=== PATIENT | male | born 1970 | race Caucasian/White ===

== ENCOUNTER 2016-11-02 11:39 | Inpatient (IN) | payer OTHER ==
[~2016-11-02] VITALS: Ht 182.9 cm; Wt 109.7 kg
[2016-11-02] VITALS (9 sets, daily range): BP systolic 129–163; BP diastolic 84–91; PULSE 63–118; RESP 18–31; TEMP 97.8–99.9; O2SAT 96–99
[2016-11-02] MEDS ORDERED: SODIUM CHLOR 0.9% 1000 ML INJ 1,000 ML IV SCH (11:48)
[2016-11-02] MEDS ORDERED: TETANUS/DIPHTHERIA TOXOID ADULT 0.5 ML VIAL IM ONE (12:00)
[2016-11-02] MEDS ORDERED: ONDANSETRON HCL 4 MG/2 ML VIAL IVP ONE (12:00)
[2016-11-02] MEDS ORDERED: SODIUM CHLORIDE 0.9% FLUSH 10 ML FLUSH IVF PRN ×2 (12:00→16:15)
[2016-11-02] MEDS ORDERED: MORPHINE SULFATE 4 MG/ML INJ IV ONE (12:00)
[2016-11-02 12:25] LABS: AUTOMATED NEUTROPHIL # 9.9 TH/MM3 (1.8-7.7); BASOPHIL # 0.1 TH/MM3 (0-0.2); BASOPHIL % 0.5 % (0.0-2.0); EOSINOPHIL # 0.1 TH/MM3 (0-0.4); EOSINOPHIL % 0.8 % (0.0-4.0); HEMATOCRIT 43.2 % (39.0-51.0); HEMO FLAGS DIFF FINAL; LYMPHOCYTE # 3.1 TH/MM3 (1.0-4.8); MEAN CELL VOLUME 90.5 FL (80.0-100.0); MEAN CORPUSCULAR HEMOGLOBIN 30.6 PG (27.0-34.0); MEAN CORPUSCULAR HGB CONC 33.8 % (32.0-36.0); MONO % 6.3 % (0.0-8.0); NEUT % 70.4 % (16.0-70.0); PLATELET COUNT 207 TH/MM3 (150-450); RED BLOOD COUNT 4.77 MIL/MM3 (4.50-5.90); RED CELL DISTRIBUTION WIDTH 12.3 % (11.6-17.2); WHITE BLOOD COUNT 14.1 TH/MM3 (4.0-11.0)
[2016-11-02 12:33] LABS: BICARBONATE 27.8 MEQ/L (21.0-32.0); POTASSIUM 3.5 MEQ/L (3.5-5.1)
[2016-11-02 12:36] LABS: APTT (PATIENT) 24.7 SEC (24.3-30.1); PROTHROMBIN TIME - PATIENT 11.1 SEC (9.8-11.6)
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
[2016-11-02] MEDS ORDERED: MORPHINE SULFATE 4 MG/ML INJ IV PUSH ONE (12:45)
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
[2016-11-02] MEDS ORDERED: IOHEXOL 350 MG/ML 10 ML VIAL (for RAD DIAG) IV ONE (13:26)
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
[2016-11-02] MEDS ORDERED: HYDROmorphone HCL PF 1 MG/ML VIAL IV PUSH ONE ×2 (13:45→14:45)
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
--- NOTE | 2016-11-02 15:37 | RADRPT ---
EXAM DATE/TIME: 11/02/2016 14:59 [facility] COMPARISON: CHEST SINGLE AP, November 02, 2016, 11:57. INDICATIONS : Shortness of breath and chest pain. MEDICAL HISTORY : None. SURGICAL HISTORY : None. ENCOUNTER: Subsequent ACUITY: 1 day PAIN SCORE: 10/10 LOCATION: Bilateral chest FINDINGS: The lungs remain hypoaerated with patchy airspace disease. There slight increase in basilar airspace disease bilaterally. Heart and mediastinal structures are stable. CONCLUSION: Increasing airspace disease Poor lung aeration. No other significant change. Stalin Gee MD on November 02, 2016 at 15:33 Board Certified Radiologist. This report was verified electronically.
[2016-11-02] MEDS ORDERED: ACETAMINOPHEN 650 MG SUPP RECTAL PRN (16:15)
[2016-11-02] MEDS ORDERED: NS + KCL 20 MEQ INJ 1,000 ML IV SCH (16:15)
[2016-11-02] MEDS ORDERED: ONDANSETRON HCL 4 MG/2 ML VIAL IV PRN (16:15)
[2016-11-02] MEDS ORDERED: HYDROmorphone HCL PF 1 MG/ML VIAL IV PUSH PRN (16:15)
[2016-11-02] MEDS: SODIUM CHLOR 0.9% 1000 ML INJ 1,000 ML IV SCH (16:32)
[2016-11-02] MEDS ORDERED: SODIUM CHLORIDE 0.9% FLUSH 10 ML FLUSH IV FLUSH PRN (16:45)
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
[2016-11-02] MEDS: PANTOPRAZOLE SOD 40 MG DELAYED RELEASE TAB PO SCH (18:02)
[2016-11-02] MEDS ORDERED: NALOXONE HCL 0.4 MG/ML AMP IV PRN (18:15)
[2016-11-02] MEDS: MORPHINE SULFATE 30 MG/30 ML PCA IV SCH (18:23)
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
[2016-11-02] MEDS ORDERED: RESP: ALBUTEROL 2.5 MG/IPRATROPIUM 0.5 MG NEB (SCH) NEB (20:00)
[2016-11-02] MEDS ORDERED: SODIUM CHLORIDE 0.9% FLUSH 10 ML FLUSH IV FLUSH SCH (21:00)
[2016-11-02] MEDS: SODIUM CHLORIDE 0.9% FLUSH 10 ML FLUSH IV FLUSH SCH (21:00)
[2016-11-02] MEDS: PCA - TOTAL MG MORPHINE DELIVERED PER SHIFT SCH (22:00)
[2016-11-02] MEDS: DOCUSATE SODIUM 100 MG CAP PO SCH (22:48)
[2016-11-02] MEDS: KETOROLAC TROMETHAMINE 30 MG/ML (IVP) VIAL IV PUSH SCH (22:48)
[2016-11-02] MEDS: LIDOCAINE HCL 5% PATCH T-DERMAL SCH (22:48)
[2016-11-02] MEDS ORDERED: KETOROLAC TROMETHAMINE 30 MG/ML (IVP) VIAL IV PUSH SCH (23:00)
[2016-11-03] VITALS (16 sets, daily range): BP systolic 116–158; BP diastolic 67–83; PULSE 76–99; RESP 14–19; TEMP 98.4–99.2; O2SAT 92–98
[2016-11-03] MEDS: MORPHINE SULFATE 30 MG/30 ML PCA IV SCH ×2 (00:23→06:50)
[2016-11-03] MEDS ORDERED: SODIUM CHLOR 0.9% 1000 ML INJ 1,000 ML IV SCH (02:15)
[2016-11-03] MEDS: SODIUM CHLOR 0.9% 1000 ML INJ 1,000 ML IV SCH ×2 (02:32→11:55)
[2016-11-03] MEDS: KETOROLAC TROMETHAMINE 30 MG/ML (IVP) VIAL IV PUSH SCH ×4 (04:30→23:03)
[2016-11-03 05:14] LABS: AUTOMATED NEUTROPHIL # 12.4 TH/MM3 (1.8-7.7); BASOPHIL % 0.1 % (0.0-2.0); HEMATOCRIT 40.7 % (39.0-51.0); HEMO FLAGS DIFF FINAL; LYMPH % 7.6 % (9.0-44.0); LYMPHOCYTE # 1.2 TH/MM3 (1.0-4.8); MEAN CELL VOLUME 90.7 FL (80.0-100.0); MEAN CORPUSCULAR HEMOGLOBIN 30.9 PG (27.0-34.0); MONO % 10.2 % (0.0-8.0); NEUT % 82.1 % (16.0-70.0); PLATELET COUNT 166 TH/MM3 (150-450); RED BLOOD COUNT 4.49 MIL/MM3 (4.50-5.90); RED CELL DISTRIBUTION WIDTH 12.8 % (11.6-17.2); WHITE BLOOD COUNT 15.1 TH/MM3 (4.0-11.0)
--- NOTE | 2016-11-03 05:18 | RADRPT ---
EXAM DATE/TIME: 11/03/2016 04:58 [facility] COMPARISON: CT THORAX W CONTRAST, November 02, 2016, 12:49. CHEST SINGLE AP, November 02, 2016, 14:59. INDICATIONS : Shortness of breath. MEDICAL HISTORY : Non-responsive SURGICAL HISTORY : Non-responsive ENCOUNTER: Subsequent ACUITY: 2 days PAIN SCORE: Non-responsive. LOCATION: Bilateral chest FINDINGS: Mild left lung base atelectasis and/or infiltrate is seen not present previously. Perivascular paren chymal process is present most likely pulmonary edema. Multiple fractures are again seen. No definite pneumothorax is seen for technique. CONCLUSION: Interval development of left lung base atelectasis and/or infiltrate and probable pulmonary edema not significantly changed. Adi Fitch MD on November 03, 2016 at 5:15 Board Certified Radiologist. This report was verified electronically.
[2016-11-03 05:29] LABS: BICARBONATE 24.3 MEQ/L (21.0-32.0); POTASSIUM 4.2 MEQ/L (3.5-5.1)
[2016-11-03] MEDS: PCA - TOTAL MG MORPHINE DELIVERED PER SHIFT SCH (06:00)
[2016-11-03] MEDS ORDERED: RESP: ALBUTEROL 2.5 MG/IPRATROPIUM 0.5 MG NEB (PRN) NEB (07:00)
[2016-11-03] MEDS: SODIUM CHLORIDE 0.9% FLUSH 10 ML FLUSH IV FLUSH SCH ×2 (09:01→21:19)
[2016-11-03] MEDS: RESP: ALBUTEROL 2.5 MG/IPRATROPIUM 0.5 MG NEB (SCH) NEB ×3 (09:01→21:13)
[2016-11-03] MEDS: DOCUSATE SODIUM 100 MG CAP PO SCH ×2 (09:01→21:18)
[2016-11-03] MEDS: METHOCARBAMOL 500 MG TAB PO SCH ×3 (09:01→21:18)
[2016-11-03] MEDS: LIDOCAINE HCL 5% PATCH T-DERMAL SCH ×2 (10:28→23:01)
[2016-11-03] MEDS: ENOXAPARIN SODIUM 30 MG/0.3 ML SYRINGE SQ SCH ×2 (10:28→21:18)
[2016-11-03] MEDS: HYDROmorphone HCL PCA 6 MG/30 ML IV SCH ×2 (10:29→18:27)
[2016-11-03] MEDS ORDERED: NALOXONE HCL 0.4 MG/ML AMP IV PRN (10:30)
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
[2016-11-03] MEDS: PCA - TOTAL MG DILAUDID DELIVERED PER SHIFT OTHER SCH ×2 (13:58→22:00)
[2016-11-03 15:02] LABS: BLOOD GAS CARBOXYHEMOGLOBIN 1.1 % (0-4); BLOOD GAS HCO3 27 mmol/L (22-26); BLOOD GAS METHEMOGLOBIN 0.9 % (0-2); BLOOD GAS O2 HGB SATURATION 91 % (90-100); BLOOD GAS OXYGEN CONTENT 17.5 Vol % (12.0-20.0); BLOOD GAS PCO2 57 mmHg (38-42); BLOOD GAS PO2 68 mmHg (61-120); BLOOD GAS TOTAL HGB 13.8 G/DL (12.0-16.0); TEMP CORR TO 98.6
[2016-11-03 15:03] LABS: CRITICAL VALUE YES; DRAW SITE RT RADIAL; FIO2 100 %; NUMBER OF ARTERIAL PUNCTURES 1; OXYGEN DEVICE BIPAP
[2016-11-03 15:04] LABS: STAT YES; ULNAR PULSE PRESENT
[2016-11-03] MEDS ORDERED: FUROSEMIDE 20 MG/2 ML VIAL IV PUSH ONE (15:15)
[2016-11-03 15:32] LABS: BLOOD, URINE MOD (NEG); GLUCOSE,URINE 150 mg/dL (NEG); KETONE, URINE NEG (NEG); MUCUS URINE MANY /lpf (OCC); NITRITE,URINE NEG (NEG); PH, URINE 5.5 (5.0-8.5); SQUAMOUS EPITHELIAL CELL URINE 3 /hpf (0-5); URINE COLOR YELLOW (YELLW/STRAW)
[2016-11-03 15:33] LABS: COMMENT (UR) CATH-CULTURE IND; CULTURE IF INDICATED CATH CULTURE IND
[2016-11-03] MEDS: PANTOPRAZOLE SOD 40 MG DELAYED RELEASE TAB PO SCH (16:08)
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
[2016-11-03 18:46] LABS: BLOOD GAS BASE EXCESS 1.3 mmol/L (-2-2); BLOOD GAS HCO3 27 mmol/L (22-26); BLOOD GAS METHEMOGLOBIN 0.9 % (0-2); BLOOD GAS O2 HGB SATURATION 92 % (90-100); BLOOD GAS OXYGEN CONTENT 17.2 Vol % (12.0-20.0); BLOOD GAS PCO2 55 mmHg (38-42); BLOOD GAS PO2 69 mmHg (61-120); BLOOD GAS TOTAL HGB 13.4 G/DL (12.0-16.0); TEMP CORR TO 98.6
[2016-11-03 18:47] LABS: CRITICAL VALUE YES
[2016-11-03 18:48] LABS: OXYGEN DEVICE BIPAP; VENT SETTINGS IPAP 15/EPAP 7
[2016-11-03 18:49] LABS: DRAW SITE LT RADIAL; FIO2 100 %; NUMBER OF ARTERIAL PUNCTURES 2; ULNAR PULSE PRESENT
[2016-11-03 18:50] LABS: STAT NO
[2016-11-03] MEDS ORDERED: MAGNESIUM HYDROXIDE SUSP 30 ML CUP PO SCH (21:00)
[2016-11-03] MEDS: BACITRACIN TOP OINT 15 GM TUBE TOPICAL SCH (21:18)
[2016-11-04] VITALS (19 sets, daily range): BP systolic 119–145; BP diastolic 62–83; PULSE 73–101; RESP 12–21; TEMP 97.8–98.4; O2SAT 80–99
[2016-11-04] MEDS: HYDROmorphone HCL PCA 6 MG/30 ML IV SCH ×2 (01:26→11:44)
[2016-11-04 02:04] LABS: AMPHETAMINE, URINE NEG (NEG); BARBITURATES, URINE NEG (NEG)
[2016-11-04 02:11] LABS: COCAINE, URINE NEG (NEG)
[2016-11-04] MEDS: RESP: ALBUTEROL 2.5 MG/IPRATROPIUM 0.5 MG NEB (SCH) NEB ×4 (02:12→20:02)
[2016-11-04] MEDS: BACITRACIN TOP OINT 15 GM TUBE TOPICAL SCH ×2 (03:30→10:10)
[2016-11-04 04:59] LABS: AUTOMATED NEUTROPHIL # 9.4 TH/MM3 (1.8-7.7); BASOPHIL % 0.3 % (0.0-2.0); EOSINOPHIL % 0.3 % (0.0-4.0); HEMATOCRIT 36.6 % (39.0-51.0); HEMO FLAGS DIFF FINAL; LYMPH % 7.9 % (9.0-44.0); LYMPHOCYTE # 0.9 TH/MM3 (1.0-4.8); MEAN CELL VOLUME 90.8 FL (80.0-100.0); MEAN CORPUSCULAR HEMOGLOBIN 30.5 PG (27.0-34.0); MEAN CORPUSCULAR HGB CONC 33.5 % (32.0-36.0); MONO % 9.2 % (0.0-8.0); NEUT % 82.3 % (16.0-70.0); PLATELET COUNT 125 TH/MM3 (150-450); RED BLOOD COUNT 4.03 MIL/MM3 (4.50-5.90); RED CELL DISTRIBUTION WIDTH 12.5 % (11.6-17.2); WHITE BLOOD COUNT 11.4 TH/MM3 (4.0-11.0)
[2016-11-04] MEDS: METHOCARBAMOL 500 MG TAB PO SCH ×3 (05:09→22:14)
[2016-11-04] MEDS: KETOROLAC TROMETHAMINE 30 MG/ML (IVP) VIAL IV PUSH SCH ×4 (05:09→22:16)
[2016-11-04 05:14] LABS: BLOOD GAS BASE EXCESS 3.9 mmol/L (-2-2); BLOOD GAS CARBOXYHEMOGLOBIN 1.1 % (0-4); BLOOD GAS HCO3 29 mmol/L (22-26); BLOOD GAS METHEMOGLOBIN 0.8 % (0-2); BLOOD GAS O2 HGB SATURATION 95 % (90-100); BLOOD GAS OXYGEN CONTENT 15.9 Vol % (12.0-20.0); BLOOD GAS PCO2 57 mmHg (38-42); BLOOD GAS PO2 85 mmHg (61-120); BLOOD GAS TOTAL HGB 11.8 G/DL (12.0-16.0); CRITICAL VALUE YES; TEMP CORR TO 98.6
[2016-11-04 05:15] LABS: DRAW SITE RT RADIAL; FIO2 60 %; NUMBER OF ARTERIAL PUNCTURES 1; OXYGEN DEVICE BIPAP; STAT NO; ULNAR PULSE PRESENT; VENT SETTINGS 15IPAP/7EPAP
[2016-11-04 05:31] LABS: ALT (GPT) 35 U/L (12-78); ANION GAP 4 MEQ/L (5-15); AST (GOT) 39 U/L (15-37); BICARBONATE 31.9 MEQ/L (21.0-32.0); BLOOD UREA NITROGEN 24 MG/DL (7-18); CHLORIDE 104 MEQ/L (98-107); GLOMERULAR FILTRATION RATE 88 ML/MIN (>89); MAGNESIUM 2.4 MG/DL (1.5-2.5); SODIUM (NA) 140 MEQ/L (136-145)
[2016-11-04 05:40] LABS: ALKALINE PHOSPHATASE 49 U/L (45-117); TOTAL BILIRUBIN ADULT 1.1 MG/DL (0.2-1.0)
[2016-11-04] MEDS: PCA - TOTAL MG DILAUDID DELIVERED PER SHIFT OTHER SCH ×3 (06:00→22:00)
--- NOTE | 2016-11-04 06:21 | RADRPT ---
EXAM DATE/TIME: 11/04/2016 04:44 [facility] COMPARISON: CT THORAX W CONTRAST, November 02, 2016, 12:49. CHEST SINGLE AP, November 03, 2016, 4:58. INDICATIONS : Shortness of breath MEDICAL HISTORY : Unobtainable SURGICAL HISTORY : Unobtainable ENCOUNTER: Subsequent ACUITY: 3 days PAIN SCORE: Non-responsive. LOCATION: Bilateral chest FINDINGS: There is slight linear atelectasis in right lung base. The examination is slightly limited due to mot ion artifact. Mild left lung base atelectasis and/or infiltrate is seen. Heart and mediastinum are un remarkable for technique. Multiple fractures are again seen. No definite pneumothorax is seen for fadumo hnique. CONCLUSION: Slight bibasilar atelectasis and/or infiltrate is seen. Adi Fitch MD on November 04, 2016 at 6:19 Board Certified Radiologist. This report was verified electronically.
[2016-11-04] MEDS ORDERED: PILL SPLITTER OTHER PRN (08:00)
[2016-11-04] MEDS: SODIUM CHLORIDE 0.9% FLUSH 10 ML FLUSH IV FLUSH SCH ×2 (10:09→20:40)
[2016-11-04] MEDS: SODIUM CHLOR 0.9% 1000 ML INJ 1,000 ML IV SCH ×2 (10:10→20:39)
[2016-11-04] MEDS: LACTULOSE SYRUP 20 GM/30 ML CUP PO SCH (10:10)
[2016-11-04] MEDS: DOCUSATE SODIUM 50 MG/SENNA 8.6 MG TAB PO SCH ×2 (10:10→20:39)
[2016-11-04] MEDS: ENOXAPARIN SODIUM 30 MG/0.3 ML SYRINGE SQ SCH ×2 (10:10→20:40)
[2016-11-04] MEDS: LIDOCAINE HCL 5% PATCH T-DERMAL SCH ×2 (10:11→22:15)
[2016-11-04] MEDS: ONDANSETRON HCL 4 MG/2 ML VIAL IV PRN (12:50)
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
[2016-11-04] MEDS ORDERED: META28.34 PO (16:41)
[2016-11-04] MEDS: PSYLLIUM FIBER SF/GF 6 GM POWD PKT PO SCH (16:45)
--- NOTE | 2016-11-04 16:59 | ECHRPT ---
Indication: CONCLUSIONS BP: 156 / 89 HR: 63 Rhythm: Other MEASUREMENTS (Male / Female) Normal Values Technical Quality:Technically difficult study 2D ECHO LV Diastolic Diameter PLAX 4.4 cm 4.2 - 5.9 / 3.9 - 5.3 cm LV Systolic Diameter PLAX 3.6 cm IVS Diastolic Thickness 1.3 cm 0.6 - 1.0 / 0.6 - 0.9 cm LVPW Diastolic Thickness 1.2 cm 0.6 - 1.0 / 0.6 - 0.9 cm LV Relative Wall Thickness 0.6 LVOT Diameter 2.0 cm M-MODE Aortic Root Diameter MM 2.8 cm LA Systolic Diameter MM 3.0 cm LA Ao Ratio MM 1.1 AV Cusp Separation MM 1.9 cm DOPPLER AV Peak Velocity 163.0 cm/s AV Peak Gradient 10.6 mmHg LVOT Peak Velocity 148.0 cm/s LVOT Peak Gradient 8.8 mmHg AV Area Cont Eq pk 2.9 cm Mitral E Point Velocity 75.5 cm/s Mitral A Point Velocity 60.2 cm/s Mitral E to A Ratio 1.3 TR Peak Velocity 151.0 cm/s TR Peak Gradient 9.1 mmHg PV Peak Velocity 140.0 cm/s PV Peak Gradient 7.8 mmHg FINDINGS LEFT VENTRICLE Normal left ventricular size. Wall thickness is measured at the upper limits of normal. The left ventricular systolic function is normal with an estimated ejection fraction in the range of 55-60%. RIGHT VENTRICLE Normal right ventricular size and systolic function. LEFT ATRIUM The left atrial size is normal. RIGHT ATRIUM The right atrial size is normal. ATRIAL SEPTUM Normal atrial septal thickness without atrial level shunting by limited color doppler interrogation. AORTA The aortic root and proximal ascending aorta are normal in size on limited imaging. MITRAL VALVE Structurally normal mitral valve. No mitral valve stenosis or regurgitation. AORTIC VALVE Trileaflet aortic valve. No aortic valve stenosis or regurgitation. TRICUSPID VALVE Structurally normal tricuspid valve. There is trace tricuspid valve regurgitation. PULMONARY VALVE The pulmonary valve is not well visualized. VESSELS The inferior vena cava was not well visualized. PERICARDIUM No pericardial effusion. Rodolfo Horne MD (Electronically Signed) Final Date:04 November 2016 16:59
[2016-11-04] MEDS: PANTOPRAZOLE SOD 40 MG DELAYED RELEASE TAB PO SCH (17:14)
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
[2016-11-05] VITALS (17 sets, daily range): BP systolic 118–158; BP diastolic 62–80; PULSE 82–116; RESP 18–20; TEMP 98.6–102.1; O2SAT 92–100
[2016-11-05] MEDS: HYDROmorphone HCL PCA 6 MG/30 ML IV SCH ×3 (01:01→22:51)
[2016-11-05] MEDS: RESP: ALBUTEROL 2.5 MG/IPRATROPIUM 0.5 MG NEB (SCH) NEB ×4 (03:02→20:36)
[2016-11-05] MEDS: KETOROLAC TROMETHAMINE 30 MG/ML (IVP) VIAL IV PUSH SCH ×4 (04:52→22:26)
[2016-11-05 04:59] LABS: BLOOD GAS BASE EXCESS 4.3 mmol/L (-2-2); BLOOD GAS CARBOXYHEMOGLOBIN 1.5 % (0-4); BLOOD GAS HCO3 29 mmol/L (22-26); BLOOD GAS O2 HGB SATURATION 92 % (90-100); BLOOD GAS OXYGEN CONTENT 13.3 Vol % (12.0-20.0); BLOOD GAS PCO2 47 mmHg (38-42); BLOOD GAS PO2 69 mmHg (61-120); BLOOD GAS TOTAL HGB 10.2 G/DL (12.0-16.0); CRITICAL VALUE NO; DRAW SITE LT RADIAL; FIO2 100 %; LITER FLOW 15 L/M; NUMBER OF ARTERIAL PUNCTURES 1; OXYGEN DEVICE NRB; TEMP CORR TO 98.6
[2016-11-05 05:00] LABS: STAT NO; ULNAR PULSE PRESENT
[2016-11-05 05:44] LABS: AUTOMATED NEUTROPHIL # 6.2 TH/MM3 (1.8-7.7); BASOPHIL % 0.2 % (0.0-2.0); EOSINOPHIL % 0.1 % (0.0-4.0); HEMATOCRIT 30.5 % (39.0-51.0); HEMO FLAGS DIFF FINAL; LYMPH % 3.3 % (9.0-44.0); LYMPHOCYTE # 0.2 TH/MM3 (1.0-4.8); MEAN CELL VOLUME 91.2 FL (80.0-100.0); MEAN CORPUSCULAR HEMOGLOBIN 30.5 PG (27.0-34.0); MEAN CORPUSCULAR HGB CONC 33.4 % (32.0-36.0); MONO % 7.3 % (0.0-8.0); NEUT % 89.1 % (16.0-70.0); PLATELET COUNT 109 TH/MM3 (150-450); RED BLOOD COUNT 3.34 MIL/MM3 (4.50-5.90); RED CELL DISTRIBUTION WIDTH 12.5 % (11.6-17.2)
[2016-11-05] MEDS: PCA - TOTAL MG DILAUDID DELIVERED PER SHIFT OTHER SCH ×3 (06:00→22:00)
[2016-11-05 06:15] LABS: BICARBONATE 30.6 MEQ/L (21.0-32.0); POTASSIUM 3.7 MEQ/L (3.5-5.1)
--- NOTE | 2016-11-05 06:38 | RADRPT ---
EXAM DATE/TIME: 11/05/2016 05:36 [facility] COMPARISON: CHEST SINGLE AP, November 04, 2016, 4:44. INDICATIONS : Evaluate pnuemothorax. MEDICAL HISTORY : None. SURGICAL HISTORY : None. ENCOUNTER: Subsequent ACUITY: 4 - 6 days PAIN SCORE: Non-responsive. LOCATION: Bilateral chest FINDINGS: The cardiac silhouette is enlarged in transverse diameter. There is bilateral lower lobe atelectasis versus pneumonia. There is elevation of the right hemidiaphragm. There is no evidence of pneumothora x. CONCLUSION: 1. There is no evidence of pneumothorax. Lucas Banegas MD on November 05, 2016 at 6:36 Board Certified Radiologist. This report was verified electronically.
[2016-11-05] MEDS: DOCUSATE SODIUM 50 MG/SENNA 8.6 MG TAB PO SCH ×2 (08:19→20:13)
[2016-11-05] MEDS: LACTULOSE SYRUP 20 GM/30 ML CUP PO SCH (08:19)
[2016-11-05] MEDS: ENOXAPARIN SODIUM 30 MG/0.3 ML SYRINGE SQ SCH ×2 (08:20→20:13)
[2016-11-05] MEDS: SODIUM CHLORIDE 0.9% FLUSH 10 ML FLUSH IV FLUSH SCH ×2 (08:20→20:13)
[2016-11-05] MEDS: BACITRACIN TOP OINT 15 GM TUBE TOPICAL SCH ×2 (08:20→20:13)
[2016-11-05] MEDS: PSYLLIUM FIBER SF/GF 6 GM POWD PKT PO SCH (08:33)
[2016-11-05] MEDS: METHOCARBAMOL 500 MG TAB PO SCH ×3 (08:33→22:26)
[2016-11-05] MEDS: SODIUM CHLOR 0.9% 1000 ML INJ 1,000 ML IV SCH (10:55)
[2016-11-05] MEDS: LIDOCAINE HCL 5% PATCH T-DERMAL SCH ×2 (10:55→22:26)
[2016-11-05] MEDS: ACETAMINOPHEN 325 MG TAB PO PRN ×2 (12:32→20:14)
[2016-11-05 14:41] LABS: HEPARIN INDUCED PLATELET AB NEGATIVE (NEGATIVE)
[2016-11-05] MEDS: PANTOPRAZOLE SOD 40 MG DELAYED RELEASE TAB PO SCH (16:43)
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
[2016-11-06] VITALS (19 sets, daily range): BP systolic 90–121; BP diastolic 52–69; PULSE 80–128; RESP 16–24; TEMP 97.2–102.6; O2SAT 93–100
[2016-11-06] MEDS ORDERED: ETOMIDATE 20 MG/10 ML VIAL ONE (00:52)
[2016-11-06] MEDS ORDERED: SUCCINYLCHOLINE CHLORIDE 200 MG/10 ML VIAL ONE (00:53)
[2016-11-06] MEDS ORDERED: PROPOFOL 1000 MG/100 ML INJ 100 ML ONE (01:11)
[2016-11-06] MEDS ORDERED: MIDAZOLAM HCL 5 MG/ML VIAL (1 ML) ONE (01:21)
[2016-11-06 01:49] LABS: BLOOD GAS BASE EXCESS 0.1 mmol/L (-2-2); BLOOD GAS CARBOXYHEMOGLOBIN 1.1 % (0-4); BLOOD GAS HCO3 25 mmol/L (22-26); BLOOD GAS METHEMOGLOBIN 0.9 % (0-2); BLOOD GAS O2 HGB SATURATION 86 % (90-100); BLOOD GAS OXYGEN CONTENT 12.2 Vol % (12.0-20.0); BLOOD GAS PCO2 45 mmHg (38-42); BLOOD GAS PO2 56 mmHg (61-120); BLOOD GAS TOTAL HGB 10.1 G/DL (12.0-16.0); TEMP CORR TO 98.6
[2016-11-06 01:50] LABS: CRITICAL VALUE YES; OXYGEN DEVICE VENTILATOR
[2016-11-06 01:51] LABS: DRAW SITE LT RADIAL; FIO2 100 %; NUMBER OF ARTERIAL PUNCTURES 1; STAT YES; ULNAR PULSE PRESENT
--- NOTE | 2016-11-06 01:52 | RADRPT ---
EXAM DATE/TIME: 11/06/2016 01:25 [facility] COMPARISON: CHEST SINGLE AP, November 05, 2016, 5:36. INDICATIONS : Post Intubation MEDICAL HISTORY : None. SURGICAL HISTORY : None. ENCOUNTER: Initial ACUITY: 1 day PAIN SCORE: Non-responsive. LOCATION: Bilateral chest FINDINGS: A single view of the chest demonstrates endotracheal tube tip in satisfactory position. Bilateral mos tly basilar airspace consolidation. No significant effusion. No pneumothorax. CONCLUSION: 1. Endotracheal tube tip in satisfactory position. Increasing basilar airspace disease since November 05. Lavon Stark MD on November 06, 2016 at 1:50 Board Certified Radiologist. This report was verified electronically.
[2016-11-06] MEDS: SODIUM CHLOR 0.9% 1000 ML INJ 1,000 ML IV SCH ×2 (02:00→14:26)
[2016-11-06] MEDS ORDERED: ETOMIDATE 20 MG/10 ML VIAL IV PUSH ONE (02:15)
[2016-11-06] MEDS ORDERED: Vancomycin Consult Pharmacy 1 EA OTHER SCH (02:15)
[2016-11-06] MEDS ORDERED: MIDAZOLAM HCL 5 MG/5 ML VIAL IV ONE (02:15)
[2016-11-06] MEDS ORDERED: SUCCINYLCHOLINE CHLORIDE 200 MG/10 ML VIAL IV ONE (02:15)
[2016-11-06] MEDS ORDERED: VANCOMYCIN INJ 1,000 MG in SODIUM CHLOR 0.9% 250 ML INJ 250 ML IV ONE (02:15)
[2016-11-06] MEDS ORDERED: MIDAZOLAM HCL 5 MG/ML VIAL (1 ML) IV ONE (02:15)
[2016-11-06] MEDS ORDERED: MIDAZOLAM 100 MG/ML INJ 100 ML IV SCH (02:30)
[2016-11-06] MEDS: PIPERACIL-TAZO 4.5 GM PREMIX 100 ML IV SCH ×4 (02:34→20:01)
[2016-11-06] MEDS: RESP: ALBUTEROL 2.5 MG/IPRATROPIUM 0.5 MG NEB (SCH) NEB ×4 (02:56→21:03)
[2016-11-06] MEDS: PROPOFOL 1000 MG/100 ML IV SCH ×3 (03:04→08:46)
[2016-11-06] MEDS: PCA - TOTAL MG DILAUDID DELIVERED PER SHIFT OTHER SCH (04:07)
[2016-11-06] MEDS: KETOROLAC TROMETHAMINE 30 MG/ML (IVP) VIAL IV PUSH SCH (04:07)
[2016-11-06] MEDS: METHOCARBAMOL 500 MG TAB PO SCH (04:08)
[2016-11-06 04:56] LABS: AUTOMATED NEUTROPHIL # 3.7 TH/MM3 (1.8-7.7); BASOPHIL % 0.1 % (0.0-2.0); EOSINOPHIL % 0.1 % (0.0-4.0); HEMATOCRIT 30.4 % (39.0-51.0); LYMPH % 4.4 % (9.0-44.0); LYMPHOCYTE # 0.2 TH/MM3 (1.0-4.8); MEAN CELL VOLUME 90.1 FL (80.0-100.0); MEAN CORPUSCULAR HEMOGLOBIN 31.3 PG (27.0-34.0); MEAN CORPUSCULAR HGB CONC 34.8 % (32.0-36.0); MONO % 1.6 % (0.0-8.0); NEUT % 93.8 % (16.0-70.0); PLATELET COUNT 99 TH/MM3 (150-450); RED BLOOD COUNT 3.38 MIL/MM3 (4.50-5.90); RED CELL DISTRIBUTION WIDTH 12.5 % (11.6-17.2); WHITE BLOOD COUNT 3.9 TH/MM3 (4.0-11.0)
[2016-11-06 05:00] LABS: HEMO FLAGS AUTO DIFF
[2016-11-06 05:20] LABS: ALT (GPT) 33 U/L (12-78); ANION GAP 8 MEQ/L (5-15); AST (GOT) 55 U/L (15-37); BLOOD UREA NITROGEN 19 MG/DL (7-18); CHLORIDE 101 MEQ/L (98-107); GLOMERULAR FILTRATION RATE 75 ML/MIN (>89); MAGNESIUM 1.8 MG/DL (1.5-2.5); POTASSIUM 3.2 MEQ/L (3.5-5.1); SODIUM (NA) 138 MEQ/L (136-145)
[2016-11-06 05:22] LABS: ALKALINE PHOSPHATASE 65 U/L (45-117); TOTAL BILIRUBIN ADULT 3.1 MG/DL (0.2-1.0)
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
[2016-11-06] MEDS ORDERED: POTASSIUM CHLOR 40 MEQ PREMIX 100 ML IV PRN (07:45)
[2016-11-06] MEDS ORDERED: SODIUM PHOSPHATE INJ 30 MMOL in SODIUM CHLOR 0.9% 250 ML INJ 240 ML IV PRN (07:45)
[2016-11-06] MEDS ORDERED: POTASSIUM PHOSPHATE MONOBASIC 500 MG TAB PO/TUBE PRN (07:45)
[2016-11-06] MEDS ORDERED: MAGNESIUM SULFATE INJ 4 GM in SODIUM CHLORIDE 0.9% INJ 92 ML IV PRN (07:45)
[2016-11-06] MEDS ORDERED: POTASSIUM CHLORIDE 25 MEQ EFFERVESCENT TAB PO PRN (07:45)
[2016-11-06] MEDS ORDERED: MAGNESIUM OXIDE 400 MG TAB PO PRN (07:45)
[2016-11-06] MEDS ORDERED: POTASSIUM PHOSPHATE MONOBASIC 500 MG TAB PO PRN (07:45)
[2016-11-06] MEDS ORDERED: MAGNESIUM SULFATE INJ 2 GM in SODIUM CHLORIDE 0.9% INJ 96 ML IV PRN (07:45)
[2016-11-06] MEDS ORDERED: POTASSIUM PHOSPHATE INJ 30 MMOL in SODIUM CHLOR 0.9% 250 ML INJ 250 ML IV PRN (07:45)
[2016-11-06] MEDS: CHLORHEXIDINE 0.12% (ORAL KIT) 15 ML CUP MT SCH ×2 (08:00→20:01)
[2016-11-06 08:29] LABS: BANDS 26 % (0-6); METAMYELOCYTES 12 % (0-1); NEUTROPHIL # MANUAL DIFF 3.6 TH/MM3 (1.8-7.7); POLYS (SEG NEUTROPHILS) 55 % (16-70); WBC DIFF SAMPLE 100
[2016-11-06 08:30] LABS: PLATELET ESTIMATE SMEAR LOW (NORMAL); PLATELET MORPHOLOGY NORMAL (NORMAL); SCAN/DIFF FINAL DIFF MANUAL; TOXIC VACUOLATION PRESENT (NONE SEEN)
[2016-11-06] MEDS: FAMOTIDINE 20 MG TAB PO SCH ×2 (08:41→20:01)
[2016-11-06] MEDS: LACTULOSE SYRUP 20 GM/30 ML CUP PO SCH (08:41)
[2016-11-06] MEDS: SODIUM CHLORIDE 0.9% FLUSH 10 ML FLUSH IV FLUSH SCH ×2 (08:41→20:01)
[2016-11-06] MEDS: POTASSIUM CHLOR 20 MEQ PREMIX 100 ML IV PRN ×3 (08:42→12:38)
[2016-11-06] MEDS: DOCUSATE SODIUM 50 MG/SENNA 8.6 MG TAB PO SCH ×2 (08:46→20:01)
[2016-11-06] MEDS: BACITRACIN TOP OINT 15 GM TUBE TOPICAL SCH ×2 (08:46→20:01)
[2016-11-06] MEDS: ENOXAPARIN SODIUM 30 MG/0.3 ML SYRINGE SQ SCH ×2 (10:22→21:31)
[2016-11-06 10:25] LABS: BLOOD GAS BASE EXCESS 1.1 mmol/L (-2-2); BLOOD GAS CARBOXYHEMOGLOBIN 1.1 % (0-4); BLOOD GAS HCO3 25 mmol/L (22-26); BLOOD GAS METHEMOGLOBIN 0.9 % (0-2); BLOOD GAS O2 HGB SATURATION 96 % (90-100); BLOOD GAS OXYGEN CONTENT 13.4 Vol % (12.0-20.0); BLOOD GAS PCO2 40 mmHg (38-42); BLOOD GAS PO2 89 mmHg (61-120); BLOOD GAS TOTAL HGB 9.9 G/DL (12.0-16.0); CRITICAL VALUE NO; DRAW SITE RT RADIAL; FIO2 90 %; NUMBER OF ARTERIAL PUNCTURES 1; OXYGEN DEVICE VENTILATOR; STAT NO; TEMP CORR TO 98.6; ULNAR PULSE PRESENT; VENT SETTINGS PRVC 20/550/10+/0.9
[2016-11-06] MEDS: LIDOCAINE HCL 5% PATCH T-DERMAL SCH (11:46)
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
[2016-11-06] MEDS: VANCOMYCIN INJ 1,500 MG in SODIUM CHLORID 0.9% 500 ML INJ 500 ML IV SCH (14:25)
[2016-11-06] MEDS ORDERED: MIDAZOLAM HCL 2 MG/2 ML VIAL IV ONE (15:15)
[2016-11-06] MEDS ORDERED: SODIUM CHLOR 0.9% 1000 ML INJ 1,000 ML IV ONE (15:15)
[2016-11-06] MEDS: MIDAZOLAM 100 MG/ML INJ 100 ML IV SCH (15:48)
[2016-11-06 16:15] LABS: HEMATOCRIT 27.6 % (39.0-51.0); MEAN CELL VOLUME 91.9 FL (80.0-100.0); MEAN CORPUSCULAR HEMOGLOBIN 30.3 PG (27.0-34.0); MEAN CORPUSCULAR HGB CONC 32.9 % (32.0-36.0); PLATELET COUNT 83 TH/MM3 (150-450); RED BLOOD COUNT 3.01 MIL/MM3 (4.50-5.90); RED CELL DISTRIBUTION WIDTH 12.8 % (11.6-17.2); WHITE BLOOD COUNT 13.3 TH/MM3 (4.0-11.0)
[2016-11-06 16:17] LABS: REVIEW FLAG FINAL
[2016-11-06] MEDS: fentaNYL DRIP 250 ML IV SCH (18:07)
[2016-11-06] MEDS: ACETAMINOPHEN 1000 MG/100 ML VIAL IV PRN (18:07)
[2016-11-06] MEDS ORDERED: BISACODYL 10 MG SUPP RECTAL ONE (21:45)
[2016-11-07] VITALS (19 sets, daily range): BP systolic 99–131; BP diastolic 49–69; PULSE 84–109; RESP 18–22; TEMP 99–101.1; O2SAT 91–100
[2016-11-07] MEDS: LIDOCAINE HCL 5% PATCH T-DERMAL SCH ×3 (00:07→22:53)
[2016-11-07] MEDS: ACETAMINOPHEN 1000 MG/100 ML VIAL IV PRN ×3 (01:28→18:36)
[2016-11-07] MEDS: VANCOMYCIN INJ 1,500 MG in SODIUM CHLORID 0.9% 500 ML INJ 500 ML IV SCH ×2 (02:17→14:06)
[2016-11-07] MEDS: PIPERACIL-TAZO 4.5 GM PREMIX 100 ML IV SCH ×4 (02:18→20:23)
[2016-11-07] MEDS: RESP: ALBUTEROL 2.5 MG/IPRATROPIUM 0.5 MG NEB (SCH) NEB ×2 (03:08→08:16)
[2016-11-07 03:59] LABS: AUTOMATED NEUTROPHIL # 9.8 TH/MM3 (1.8-7.7); BASOPHIL % 0.1 % (0.0-2.0); EOSINOPHIL % 0.4 % (0.0-4.0); LYMPH % 5.8 % (9.0-44.0); LYMPHOCYTE # 0.7 TH/MM3 (1.0-4.8); MEAN CELL VOLUME 90.7 FL (80.0-100.0); MEAN CORPUSCULAR HEMOGLOBIN 30.3 PG (27.0-34.0); MEAN CORPUSCULAR HGB CONC 33.4 % (32.0-36.0); MONO % 7.6 % (0.0-8.0); NEUT % 86.1 % (16.0-70.0); PLATELET COUNT 72 TH/MM3 (150-450); RED BLOOD COUNT 2.98 MIL/MM3 (4.50-5.90); RED CELL DISTRIBUTION WIDTH 12.6 % (11.6-17.2); WHITE BLOOD COUNT 11.4 TH/MM3 (4.0-11.0)
[2016-11-07 04:05] LABS: HEMO FLAGS AUTO DIFF
[2016-11-07 04:22] LABS: CALCIUM-PROTEIN CORRECTED 8.3 MG/DL (8.5-10.1); POTASSIUM 3.4 MEQ/L (3.5-5.1); TOTAL BILIRUBIN ADULT 3.7 MG/DL (0.2-1.0)
[2016-11-07 04:43] LABS: BANDS 23 % (0-6); EOSINOPHILS 1 % (0-4); METAMYELOCYTES 1 % (0-1); NEUTROPHIL # MANUAL DIFF 10.6 TH/MM3 (1.8-7.7); POLYS (SEG NEUTROPHILS) 69 % (16-70); WBC DIFF SAMPLE 100
[2016-11-07 04:44] LABS: PLATELET ESTIMATE SMEAR LOW (NORMAL); PLATELET MORPHOLOGY NORMAL (NORMAL); SCAN/DIFF FINAL DIFF MANUAL
[2016-11-07] MEDS: SODIUM CHLOR 0.9% 1000 ML INJ 1,000 ML IV SCH ×2 (04:45→17:15)
--- NOTE | 2016-11-07 05:12 | RADRPT ---
EXAM DATE/TIME: 11/07/2016 04:18 [facility] COMPARISON: CHEST SINGLE AP, November 06, 2016, 1:25. INDICATIONS : Pulmonary contusions. MEDICAL HISTORY : None. SURGICAL HISTORY : None. ENCOUNTER: Subsequent ACUITY: 4 - 6 days PAIN SCORE: Non-responsive. LOCATION: chest FINDINGS: Single AP view of the chest. Endotracheal tube remains in place. Nasogastric tube is now in place wit h the tip below the [id number] of the radiograph. Persistent bilateral pulmonary opacity and pulmo nary vasculature indistinctness unchanged. Cardiomediastinal silhouette unchanged. No evidence of pne umothorax. CONCLUSION: No significant interval change with persistent bilateral pulmonary opacity. Basim Blunt MD on November 07, 2016 at 5:09 Board Certified Radiologist. This report was verified electronically.
[2016-11-07] MEDS: POTASSIUM CHLOR 20 MEQ PREMIX 100 ML IV PRN ×2 (05:35→07:40)
[2016-11-07 06:05] LABS: BLOOD GAS BASE EXCESS 1.1 mmol/L (-2-2); BLOOD GAS CARBOXYHEMOGLOBIN 1.4 % (0-4); BLOOD GAS HCO3 25 mmol/L (22-26); BLOOD GAS METHEMOGLOBIN 0.9 % (0-2); BLOOD GAS O2 HGB SATURATION 91 % (90-100); BLOOD GAS OXYGEN CONTENT 12.3 Vol % (12.0-20.0); BLOOD GAS PCO2 39 mmHg (38-42); BLOOD GAS PO2 64 mmHg (61-120); BLOOD GAS TOTAL HGB 9.6 G/DL (12.0-16.0); CRITICAL VALUE NO; OXYGEN DEVICE VENTILATOR; TEMP CORR TO 98.6
[2016-11-07 06:07] LABS: DRAW SITE RT RADIAL; FIO2 70 %; NUMBER OF ARTERIAL PUNCTURES 2; STAT NO; ULNAR PULSE PRESENT; VENT SETTINGS PRVC
[2016-11-07] MEDS: CHLORHEXIDINE 0.12% (ORAL KIT) 15 ML CUP MT SCH ×2 (07:40→20:00)
[2016-11-07] MEDS: fentaNYL DRIP 250 ML IV SCH ×2 (07:45→17:15)
[2016-11-07] MEDS: SODIUM CHLORIDE 0.9% FLUSH 10 ML FLUSH IV FLUSH SCH ×2 (08:25→20:24)
[2016-11-07] MEDS: BACITRACIN TOP OINT 15 GM TUBE TOPICAL SCH ×2 (08:25→20:24)
[2016-11-07] MEDS: FAMOTIDINE 20 MG TAB PO SCH ×2 (08:25→20:23)
[2016-11-07] MEDS: LACTULOSE SYRUP 20 GM/30 ML CUP PO SCH (08:25)
[2016-11-07] MEDS: DOCUSATE SODIUM 50 MG/SENNA 8.6 MG TAB PO SCH ×2 (08:25→20:23)
[2016-11-07] MEDS ORDERED: BISACODYL 10 MG SUPP RECTAL ONE (11:30)
[2016-11-07] MEDS: ENOXAPARIN SODIUM 30 MG/0.3 ML SYRINGE SQ SCH ×2 (11:39→22:52)
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
[2016-11-07] MEDS: PROPOFOL 1000 MG/100 ML IV SCH (11:46)
--- NOTE | 2016-11-07 12:33 | RADRPT ---
EXAM DATE/TIME: 11/07/2016 12:04 [facility] COMPARISON: No previous studies available for comparison. INDICATIONS : Central line placement. MEDICAL HISTORY : None. SURGICAL HISTORY : None. ENCOUNTER: Subsequent ACUITY: 4 - 6 days PAIN SCORE: Non-responsive. LOCATION: Bilateral chest FINDINGS: A single view of the chest demonstrates endotracheal tube in satisfactory position. Left central line in superior vena cava. Patchy left basilar airspace disease is improved from earlier examination. Na sogastric tube enters stomach. CONCLUSION: 1. Placement of left central line in superior vena cava without pneumothorax. Lavon Stark MD on November 07, 2016 at 12:30 Board Certified Radiologist. This report was verified electronically.
[2016-11-07] MEDS: MIDAZOLAM 100 MG/ML INJ 100 ML IV SCH (14:06)
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
[2016-11-07] MEDS: POTASSIUM CHLOR 40 MEQ PREMIX 100 ML IV PRN (17:59)
[2016-11-08] VITALS (19 sets, daily range): BP systolic 97–159; BP diastolic 46–75; PULSE 74–94; RESP 20–25; TEMP 97.5–101.5; O2SAT 90–100
[2016-11-08] MEDS ORDERED: PHARMACY ORDERED LAB ONE (01:45)
[2016-11-08] MEDS: VANCOMYCIN INJ 1,500 MG in SODIUM CHLORID 0.9% 500 ML INJ 500 ML IV SCH (02:14)
[2016-11-08] MEDS: PIPERACIL-TAZO 4.5 GM PREMIX 100 ML IV SCH ×4 (02:14→20:04)
[2016-11-08] MEDS: fentaNYL DRIP 250 ML IV SCH (04:24)
[2016-11-08] MEDS: PROPOFOL 1000 MG/100 ML IV SCH ×4 (04:24→19:35)
--- NOTE | 2016-11-08 08:49 | RADRPT ---
EXAM DATE/TIME: 11/08/2016 07:42 [facility] COMPARISON: CHEST SINGLE AP, November 07, 2016, 12:04. INDICATIONS : Shortness of breath. MEDICAL HISTORY : None. SURGICAL HISTORY : None. ENCOUNTER: Subsequent ACUITY: 1 week PAIN SCORE: Non-responsive. LOCATION: Bilateral chest FINDINGS: ET tube, nasogastric tube, central venous catheter are in good position. Increasing airspace disease is seen in the left base. The right lung is clear. Heart and pulmonary vascularity normal. CONCLUSION: Support apparatus in good position. Increasing airspace disease in the left base. Enrrique Cabral MD FACR on November 08, 2016 at 8:33 Board Certified Radiologist. This report was verified electronically.
[2016-11-08] MEDS: SODIUM CHLORIDE 0.9% FLUSH 10 ML FLUSH IV FLUSH SCH ×2 (09:00→20:04)
[2016-11-08] MEDS: BACITRACIN TOP OINT 15 GM TUBE TOPICAL SCH ×2 (09:00→20:04)
[2016-11-08 09:25] LABS: HEMATOCRIT 24.7 % (39.0-51.0); MEAN CELL VOLUME 90.6 FL (80.0-100.0); MEAN CORPUSCULAR HEMOGLOBIN 30.6 PG (27.0-34.0); MEAN CORPUSCULAR HGB CONC 33.8 % (32.0-36.0); PLATELET COUNT 93 TH/MM3 (150-450); RED BLOOD COUNT 2.72 MIL/MM3 (4.50-5.90); RED CELL DISTRIBUTION WIDTH 13.6 % (11.6-17.2); WHITE BLOOD COUNT 9.9 TH/MM3 (4.0-11.0)
[2016-11-08 09:27] LABS: REVIEW FLAG FINAL
[2016-11-08 09:48] LABS: BICARBONATE 24.9 MEQ/L (21.0-32.0); POTASSIUM 3.5 MEQ/L (3.5-5.1)
[2016-11-08 10:00] LABS: CALCIUM-PROTEIN CORRECTED 8.3 MG/DL (8.5-10.1)
[2016-11-08] MEDS: LACTULOSE SYRUP 20 GM/30 ML CUP PO SCH ×2 (10:02→20:04)
[2016-11-08] MEDS: DOCUSATE SODIUM 50 MG/SENNA 8.6 MG TAB PO SCH ×2 (10:02→20:04)
[2016-11-08] MEDS: FAMOTIDINE 20 MG TAB PO SCH ×2 (10:02→20:04)
[2016-11-08] MEDS: ENOXAPARIN SODIUM 30 MG/0.3 ML SYRINGE SQ SCH ×2 (10:02→23:29)
[2016-11-08] MEDS: SODIUM CHLOR 0.9% 1000 ML INJ 1,000 ML IV SCH (10:02)
[2016-11-08] MEDS: LIDOCAINE HCL 5% PATCH T-DERMAL SCH ×2 (10:02→23:30)
[2016-11-08] MEDS: CHLORHEXIDINE 0.12% (ORAL KIT) 15 ML CUP MT SCH ×2 (10:11→20:00)
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
[2016-11-08] MEDS ORDERED: HALOPERIDOL LACTATE 5 MG/ML AMP IV PUSH PRN (11:00)
[2016-11-08] MEDS ORDERED: FUROSEMIDE 40 MG/4 ML VIAL IV PUSH ONE (11:00)
[2016-11-08] MEDS ORDERED: LIDOCAINE HCL 2% 100 MG/5 ML SYRINGE OTHER ONE (11:15)
[2016-11-08] MEDS ORDERED: CISATRACURIUM BESYLATE 200 MG/20 ML VIAL IV ONE (11:15)
[2016-11-08] MEDS: oxyCODONE HCL ORAL CONC 20 MG/ML SYRINGE PO SCH ×4 (11:26→23:28)
[2016-11-08] MEDS ORDERED: VANCOMYCIN 1,500 MG/NS 500 ML IV SCH ×2 (12:00)
[2016-11-08] MEDS ORDERED: MAGNESIUM CITRATE SOLN 300 ML BTL PO ONE (12:00)
[2016-11-08] MEDS: MIDAZOLAM 100 MG/ML INJ 100 ML IV SCH (13:37)
[2016-11-08] MEDS: QUEtiapine FUMARATE 100 MG TAB PO SCH ×2 (13:37→23:29)
[2016-11-08] MEDS: POLYETHYLENE GLYCOL 17 GM PKG PO SCH ×2 (13:46→20:03)
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
--- NOTE | 2016-11-08 21:14 | PD.PROCEDR ---
Procedure Note Procedure Procedure: Diagnostic Fiberoptic Bronchoscopy Diagnosis: Aspiration pneumonia Indications: Clinical pneumonia without microbiologic diagnosis despite sputum culture Consent: Written consent was obtained Anesthesia: Versed, fentanyl, propofol IV Description of the Procedure: The patient was sedated and mechanically ventilated. The patient was placed on 100% FIO2 and a volume control mode of ventilation. The fiberoptic bronchoscopy was inserted via 8.0 oral endotracheal tube. The trachea, right and left mainstem bronchi, and sub- segmental bronchi were evaluated. The endobronchial anatomy was normal. Findings: Minimal white secretions, mostly right lower lobe. BAL samples: Right lower lobe, left lower lobe The patient tolerated the procedure well with no hemodynamic instability or hypoxia. There were no immediate complications noted. At the conclusion of the procedure, the patient was placed back on their pre-procedure ventilatory settings. There was minimal EBL. I personally performed the procedure. Tony Augustine MD Nov 08, 2016 21:14
[2016-11-09] VITALS (15 sets, daily range): BP systolic 108–138; BP diastolic 57–77; PULSE 81–112; RESP 20–24; TEMP 99.2–101.7; O2SAT 95–100
[2016-11-09] MEDS: PROPOFOL 1000 MG/100 ML IV SCH ×3 (01:35→23:58)
[2016-11-09] MEDS: PIPERACIL-TAZO 4.5 GM PREMIX 100 ML IV SCH ×4 (03:18→20:16)
[2016-11-09] MEDS: oxyCODONE HCL ORAL CONC 20 MG/ML SYRINGE PO SCH ×6 (04:41→23:46)
[2016-11-09 04:57] LABS: BLOOD GAS BASE EXCESS 3.6 mmol/L (-2-2); BLOOD GAS CARBOXYHEMOGLOBIN 1.3 % (0-4); BLOOD GAS HCO3 28 mmol/L (22-26); BLOOD GAS O2 HGB SATURATION 95 % (90-100); BLOOD GAS OXYGEN CONTENT 12.5 Vol % (12.0-20.0); BLOOD GAS PCO2 50 mmHg (38-42); BLOOD GAS PO2 88 mmHg (61-120); BLOOD GAS TOTAL HGB 9.3 G/DL (12.0-16.0); CRITICAL VALUE NO; OXYGEN DEVICE VENTILATOR; TEMP CORR TO 98.6
[2016-11-09 04:58] LABS: DRAW SITE RT RADIAL; FIO2 50 %; NUMBER OF ARTERIAL PUNCTURES 1; STAT NO; ULNAR PULSE PRESENT
[2016-11-09 05:06] LABS: AUTOMATED NEUTROPHIL # 6.9 TH/MM3 (1.8-7.7); BASOPHIL % 0.1 % (0.0-2.0); EOSINOPHIL # 0.3 TH/MM3 (0-0.4); EOSINOPHIL % 2.8 % (0.0-4.0); HEMATOCRIT 24.4 % (39.0-51.0); LYMPH % 12.9 % (9.0-44.0); LYMPHOCYTE # 1.2 TH/MM3 (1.0-4.8); MEAN CELL VOLUME 90.9 FL (80.0-100.0); MEAN CORPUSCULAR HEMOGLOBIN 30.7 PG (27.0-34.0); MEAN CORPUSCULAR HGB CONC 33.8 % (32.0-36.0); MONO % 10.3 % (0.0-8.0); NEUT % 73.9 % (16.0-70.0); PLATELET COUNT 112 TH/MM3 (150-450); RED BLOOD COUNT 2.69 MIL/MM3 (4.50-5.90); RED CELL DISTRIBUTION WIDTH 13.5 % (11.6-17.2); WHITE BLOOD COUNT 9.3 TH/MM3 (4.0-11.0)
[2016-11-09 05:16] LABS: ALKALINE PHOSPHATASE 148 U/L (45-117); ALT (GPT) 58 U/L (12-78); ANION GAP 4 MEQ/L (5-15); AST (GOT) 78 U/L (15-37); BICARBONATE 31.6 MEQ/L (21.0-32.0); BLOOD UREA NITROGEN 20 MG/DL (7-18); CHLORIDE 111 MEQ/L (98-107); GLOMERULAR FILTRATION RATE 62 ML/MIN (>89); HEMO FLAGS AUTO DIFF; MAGNESIUM 2.6 MG/DL (1.5-2.5); POTASSIUM 3.7 MEQ/L (3.5-5.1); SODIUM (NA) 147 MEQ/L (136-145); TOTAL BILIRUBIN ADULT 1.7 MG/DL (0.2-1.0)
[2016-11-09] MEDS: QUEtiapine FUMARATE 100 MG TAB PO SCH ×3 (05:43→22:32)
[2016-11-09] MEDS: MIDAZOLAM 100 MG/ML INJ 100 ML IV SCH (05:44)
[2016-11-09] MEDS: fentaNYL DRIP 250 ML IV SCH (05:44)
[2016-11-09] MEDS ORDERED: ALBUMIN HUMAN 25% 25 GM/100 ML BAGP IV ONE (06:30)
[2016-11-09] MEDS ORDERED: FUROSEMIDE 40 MG/4 ML VIAL IV PUSH ONE (06:30)
--- NOTE | 2016-11-09 06:47 | RADRPT ---
EXAM DATE/TIME: 11/09/2016 05:14 [facility] COMPARISON: CHEST SINGLE AP, November 08, 2016, 7:42. INDICATIONS : Respiratory distress. MEDICAL HISTORY : None. SURGICAL HISTORY : None. ENCOUNTER: Subsequent ACUITY: 1 week PAIN SCORE: Non-responsive. LOCATION: Bilateral chest FINDINGS: Mild diffuse haziness again seen of both lungs, left more so than right and both sides not significan tly changed. No layering effusion seen. No pneumothorax. Heart size stable, upper limits of normal. Endotracheal tube tip is approximately 3.5 cm above the khadra. There is a nasogastric tube that cour ses into the stomach. Left subclavian central venous catheter again seen, tip in the superior vena ca va. CONCLUSION: No significant change. Virgil Viera MD on November 09, 2016 at 6:45 Board Certified Radiologist. This report was verified electronically.
[2016-11-09 06:52] LABS: BANDS 20 % (0-6); EOSINOPHILS 2 % (0-4); NEUTROPHIL # MANUAL DIFF 7.5 TH/MM3 (1.8-7.7); PLATELET ESTIMATE SMEAR LOW (NORMAL); PLATELET MORPHOLOGY NORMAL (NORMAL); POLYS (SEG NEUTROPHILS) 61 % (16-70); SCAN/DIFF FINAL DIFF MANUAL; WBC DIFF SAMPLE 100
[2016-11-09] MEDS: CHLORHEXIDINE 0.12% (ORAL KIT) 15 ML CUP MT SCH ×2 (08:09→20:26)
[2016-11-09] MEDS: LACTULOSE SYRUP 20 GM/30 ML CUP PO SCH ×2 (09:00→20:15)
[2016-11-09] MEDS: POLYETHYLENE GLYCOL 17 GM PKG PO SCH ×2 (09:42→20:15)
[2016-11-09] MEDS: DOCUSATE SODIUM 50 MG/SENNA 8.6 MG TAB PO SCH ×2 (09:42→20:15)
[2016-11-09] MEDS: FAMOTIDINE 20 MG TAB PO SCH ×2 (09:42→20:15)
[2016-11-09] MEDS: ENOXAPARIN SODIUM 30 MG/0.3 ML SYRINGE SQ SCH ×2 (09:42→22:32)
[2016-11-09] MEDS: BACITRACIN TOP OINT 15 GM TUBE TOPICAL SCH ×2 (09:43→20:26)
[2016-11-09] MEDS: SODIUM CHLORIDE 0.9% FLUSH 10 ML FLUSH IV FLUSH SCH ×2 (09:43→20:26)
[2016-11-09] MEDS: ACETAMINOPHEN 1000 MG/100 ML VIAL IV PRN ×2 (11:47→18:31)
[2016-11-09] MEDS: LIDOCAINE HCL 5% PATCH T-DERMAL SCH ×2 (11:49→23:45)
[2016-11-09] MEDS ORDERED: PHARMACY ORDERED LAB ONE (12:00)
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
[2016-11-09 18:59] LABS: POTASSIUM 3.5 MEQ/L (3.5-5.1)
[2016-11-09 19:00] LABS: MAGNESIUM 2.3 MG/DL (1.5-2.5)
[2016-11-09] MEDS: FUROSEMIDE 40 MG/4 ML VIAL IV PUSH SCH (20:15)
[2016-11-09] MEDS: POTASSIUM CHLOR 40 MEQ PREMIX 100 ML IV PRN (20:16)
[2016-11-10] VITALS (18 sets, daily range): BP systolic 116–132; BP diastolic 57–79; PULSE 93–115; RESP 22–28; TEMP 98.6–101.1; O2SAT 94–100
[2016-11-10] MEDS: fentaNYL DRIP 250 ML IV SCH ×2 (00:59→15:18)
[2016-11-10] MEDS: FUROSEMIDE 40 MG/4 ML VIAL IV PUSH SCH (02:02)
[2016-11-10] MEDS: PROPOFOL 1000 MG/100 ML IV SCH ×5 (02:03→22:01)
[2016-11-10] MEDS: PIPERACIL-TAZO 4.5 GM PREMIX 100 ML IV SCH ×4 (02:03→20:21)
[2016-11-10] MEDS: oxyCODONE HCL ORAL CONC 20 MG/ML SYRINGE PO SCH ×5 (04:26→20:21)
[2016-11-10 04:35] LABS: AUTOMATED NEUTROPHIL # 6.8 TH/MM3 (1.8-7.7); BASOPHIL % 0.4 % (0.0-2.0); EOSINOPHIL # 0.3 TH/MM3 (0-0.4); EOSINOPHIL % 2.6 % (0.0-4.0); HEMATOCRIT 28.1 % (39.0-51.0); LYMPH % 15.6 % (9.0-44.0); LYMPHOCYTE # 1.6 TH/MM3 (1.0-4.8); MEAN CELL VOLUME 91.7 FL (80.0-100.0); MEAN CORPUSCULAR HEMOGLOBIN 31.1 PG (27.0-34.0); MONO % 14.1 % (0.0-8.0); NEUT % 67.3 % (16.0-70.0); PLATELET COUNT 194 TH/MM3 (150-450); RED BLOOD COUNT 3.06 MIL/MM3 (4.50-5.90); RED CELL DISTRIBUTION WIDTH 13.9 % (11.6-17.2); WHITE BLOOD COUNT 10.1 TH/MM3 (4.0-11.0)
[2016-11-10 04:37] LABS: HEMO FLAGS AUTO DIFF
[2016-11-10 04:56] LABS: ANION GAP 9 MEQ/L (5-15); AST (GOT) 60 U/L (15-37); BICARBONATE 29.6 MEQ/L (21.0-32.0); BLOOD UREA NITROGEN 23 MG/DL (7-18); CHLORIDE 107 MEQ/L (98-107); GLOMERULAR FILTRATION RATE 45 ML/MIN (>89); MAGNESIUM 2.1 MG/DL (1.5-2.5); POTASSIUM 3.5 MEQ/L (3.5-5.1); SODIUM (NA) 146 MEQ/L (136-145)
[2016-11-10 05:00] LABS: ALT (GPT) 63 U/L (12-78)
[2016-11-10 05:03] LABS: ALKALINE PHOSPHATASE 198 U/L (45-117); TOTAL BILIRUBIN ADULT 1.4 MG/DL (0.2-1.0)
[2016-11-10 05:16] LABS: BLOOD GAS BASE EXCESS 2.6 mmol/L (-2-2); BLOOD GAS CARBOXYHEMOGLOBIN 1.2 % (0-4); BLOOD GAS HCO3 28 mmol/L (22-26); BLOOD GAS METHEMOGLOBIN 0.6 % (0-2); BLOOD GAS O2 HGB SATURATION 94 % (90-100); BLOOD GAS OXYGEN CONTENT 12.5 Vol % (12.0-20.0); BLOOD GAS PCO2 51 mmHg (38-42); BLOOD GAS PO2 80 mmHg (61-120); BLOOD GAS TOTAL HGB 9.4 G/DL (12.0-16.0); TEMP CORR TO 98.6
[2016-11-10 05:17] LABS: CRITICAL VALUE YES; OXYGEN DEVICE VENTILATOR
[2016-11-10 05:19] LABS: DRAW SITE LT RADIAL; FIO2 40 %; NUMBER OF ARTERIAL PUNCTURES 1; STAT NO; ULNAR PULSE PRESENT; VENT SETTINGS PRVC/AC
--- NOTE | 2016-11-10 05:42 | RADRPT ---
EXAM DATE/TIME: 11/10/2016 04:10 [place] COMPARISON: CHEST SINGLE AP, November 09, 2016, 5:14. INDICATIONS : Shortness of breath. MEDICAL HISTORY : None. SURGICAL HISTORY : None. ENCOUNTER: Subsequent ACUITY: 1 week PAIN SCORE: Non-responsive. LOCATION: Bilateral chest FINDINGS: Diffuse, perihilar predominant air space opacities persist without significant change. No large effus ion demonstrated. No pneumothorax. Heart size stable, within normal limits. Endotracheal tube tip is 3 cm above the khadra. Nasogastric tube courses into the stomach. Left subcl roland central venous catheter with tip in the superior vena cava again noted. CONCLUSION: No significant change. Persistent bilateral airspace opacities. Virgil Viera MD on November 10, 2016 at 5:39 Board Certified Radiologist. This report was verified electronically.
[2016-11-10] MEDS: QUEtiapine FUMARATE 100 MG TAB PO SCH ×3 (06:27→21:51)
[2016-11-10] MEDS: POTASSIUM CHLOR 40 MEQ PREMIX 100 ML IV PRN (07:28)
[2016-11-10 07:45] LABS: BANDS 15 % (0-6); EOSINOPHILS 3 % (0-4); MYELOCYTES 1 % (0-0); NEUTROPHIL # MANUAL DIFF 7.7 TH/MM3 (1.8-7.7); PLATELET ESTIMATE SMEAR NORMAL (NORMAL); PLATELET MORPHOLOGY NORMAL (NORMAL); POLYS (SEG NEUTROPHILS) 60 % (16-70); WBC DIFF SAMPLE 100
[2016-11-10 07:46] LABS: SCAN/DIFF FINAL DIFF MANUAL
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
[2016-11-10] MEDS: POLYETHYLENE GLYCOL 17 GM PKG PO SCH ×2 (09:56→20:21)
[2016-11-10] MEDS: LACTULOSE SYRUP 20 GM/30 ML CUP PO SCH ×2 (09:56→20:21)
[2016-11-10] MEDS: DOCUSATE SODIUM 50 MG/SENNA 8.6 MG TAB PO SCH ×2 (09:56→20:21)
[2016-11-10] MEDS: FAMOTIDINE 20 MG TAB PO SCH ×2 (09:56→20:21)
[2016-11-10] MEDS: ENOXAPARIN SODIUM 30 MG/0.3 ML SYRINGE SQ SCH ×2 (09:57→21:51)
[2016-11-10] MEDS: CHLORHEXIDINE 0.12% (ORAL KIT) 15 ML CUP MT SCH ×2 (09:58→20:37)
[2016-11-10] MEDS: SODIUM CHLORIDE 0.9% FLUSH 10 ML FLUSH IV FLUSH SCH ×2 (09:58→20:37)
[2016-11-10] MEDS: BACITRACIN TOP OINT 15 GM TUBE TOPICAL SCH ×2 (09:58→20:37)
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
[2016-11-10] MEDS: LIDOCAINE HCL 5% PATCH T-DERMAL SCH ×2 (11:38→22:01)
[2016-11-10] MEDS: ACETAMINOPHEN 1000 MG/100 ML VIAL IV PRN (16:34)
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
[2016-11-11] VITALS (19 sets, daily range): BP systolic 114–162; BP diastolic 62–86; PULSE 87–112; RESP 16–25; TEMP 98.7–101; O2SAT 93–100
[2016-11-11] MEDS: oxyCODONE HCL ORAL CONC 20 MG/ML SYRINGE PO SCH ×6 (00:11→20:07)
[2016-11-11] MEDS: PROPOFOL 1000 MG/100 ML IV SCH ×3 (01:43→08:00)
[2016-11-11] MEDS: PIPERACIL-TAZO 4.5 GM PREMIX 100 ML IV SCH ×4 (03:11→20:07)
--- NOTE | 2016-11-11 03:28 | RADRPT ---
EXAM DATE/TIME: 11/11/2016 02:39 [place] COMPARISON: CHEST SINGLE AP, November 10, 2016, 4:10. INDICATIONS : Shortness of breath MEDICAL HISTORY : None. SURGICAL HISTORY : None. ENCOUNTER: Subsequent ACUITY: 1 week PAIN SCORE: Non-responsive. LOCATION: Bilateral chest FINDINGS: Bilateral perihilar and basilar airspace opacities persist without significant change. Probably a sma ll pleural effusion on the left. No pneumothorax. Heart size stable, within normal limits. Endotracheal tube tip is approximately 3 cm above the khadra. Nasogastric tube courses into the stoma ch. There is a left subclavian central venous catheter again seen, tip in the superior vena cava. CONCLUSION: No significant change. Virgil Viera MD on November 11, 2016 at 3:26 Board Certified Radiologist. This report was verified electronically.
[2016-11-11] MEDS: ACETAMINOPHEN 1000 MG/100 ML VIAL IV PRN ×2 (03:51→15:57)
[2016-11-11 04:31] LABS: AUTOMATED NEUTROPHIL # 10.4 TH/MM3 (1.8-7.7); BASOPHIL % 0.3 % (0.0-2.0); EOSINOPHIL # 0.4 TH/MM3 (0-0.4); EOSINOPHIL % 2.6 % (0.0-4.0); HEMATOCRIT 28.5 % (39.0-51.0); LYMPH % 16.2 % (9.0-44.0); LYMPHOCYTE # 2.3 TH/MM3 (1.0-4.8); MEAN CELL VOLUME 91.1 FL (80.0-100.0); MEAN CORPUSCULAR HEMOGLOBIN 29.7 PG (27.0-34.0); MEAN CORPUSCULAR HGB CONC 32.5 % (32.0-36.0); MONO % 9.2 % (0.0-8.0); NEUT % 71.7 % (16.0-70.0); PLATELET COUNT 309 TH/MM3 (150-450); RED BLOOD COUNT 3.13 MIL/MM3 (4.50-5.90); RED CELL DISTRIBUTION WIDTH 13.7 % (11.6-17.2); WHITE BLOOD COUNT 14.5 TH/MM3 (4.0-11.0)
[2016-11-11 04:35] LABS: HEMO FLAGS AUTO DIFF
[2016-11-11 04:44] LABS: ANION GAP 9 MEQ/L (5-15); AST (GOT) 40 U/L (15-37); BICARBONATE 27.4 MEQ/L (21.0-32.0); BLOOD UREA NITROGEN 26 MG/DL (7-18); CHLORIDE 108 MEQ/L (98-107); GLOMERULAR FILTRATION RATE 51 ML/MIN (>89); MAGNESIUM 2.4 MG/DL (1.5-2.5); POTASSIUM 3.8 MEQ/L (3.5-5.1); SODIUM (NA) 144 MEQ/L (136-145)
[2016-11-11 04:47] LABS: ALKALINE PHOSPHATASE 257 U/L (45-117); ALT (GPT) 54 U/L (12-78); TOTAL BILIRUBIN ADULT 1.1 MG/DL (0.2-1.0)
[2016-11-11] MEDS: fentaNYL DRIP 250 ML IV SCH ×2 (05:17→18:46)
[2016-11-11] MEDS: QUEtiapine FUMARATE 100 MG TAB PO SCH ×3 (05:17→22:25)
[2016-11-11 05:19] LABS: BLOOD GAS BASE EXCESS 0.1 mmol/L (-2-2); BLOOD GAS CARBOXYHEMOGLOBIN 1.1 % (0-4); BLOOD GAS HCO3 25 mmol/L (22-26); BLOOD GAS METHEMOGLOBIN 0.5 % (0-2); BLOOD GAS O2 HGB SATURATION 95 % (90-100); BLOOD GAS OXYGEN CONTENT 12.7 Vol % (12.0-20.0); BLOOD GAS PCO2 44 mmHg (38-42); BLOOD GAS PO2 87 mmHg (61-120); BLOOD GAS TOTAL HGB 9.4 G/DL (12.0-16.0); CRITICAL VALUE NO; OXYGEN DEVICE VENTILATOR; TEMP CORR TO 98.6
[2016-11-11 05:21] LABS: DRAW SITE RT RADIAL; FIO2 40 %; NUMBER OF ARTERIAL PUNCTURES 1; STAT NO; ULNAR PULSE PRESENT; VENT SETTINGS SIMV/PRVC
[2016-11-11 07:01] LABS: BANDS 14 % (0-6); EOSINOPHILS 1 % (0-4); METAMYELOCYTES 6 % (0-1); NEUTROPHIL # MANUAL DIFF 11.2 TH/MM3 (1.8-7.7); POLYS (SEG NEUTROPHILS) 57 % (16-70); WBC DIFF SAMPLE 100
[2016-11-11 07:03] LABS: PLATELET ESTIMATE SMEAR NORMAL (NORMAL); PLATELET MORPHOLOGY CLUMPED (NORMAL); SCAN/DIFF FINAL DIFF MANUAL
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
[2016-11-11] MEDS: SODIUM CHLORIDE 0.9% FLUSH 10 ML FLUSH IV FLUSH SCH ×2 (07:23→20:08)
[2016-11-11] MEDS: GABAPENTIN 250 MG/5 ML UDC NG SCH ×3 (07:58→16:50)
[2016-11-11] MEDS: FAMOTIDINE 20 MG TAB PO SCH ×2 (07:58→20:07)
[2016-11-11] MEDS: LACTULOSE SYRUP 20 GM/30 ML CUP PO SCH ×2 (07:58→21:00)
[2016-11-11] MEDS: DOCUSATE SODIUM 50 MG/SENNA 8.6 MG TAB PO SCH ×2 (07:58→21:00)
[2016-11-11] MEDS: CHLORHEXIDINE 0.12% (ORAL KIT) 15 ML CUP MT SCH ×2 (07:59→20:08)
[2016-11-11] MEDS: LIDOCAINE/D5W INJ 500 ML IV SCH ×2 (07:59→23:42)
[2016-11-11] MEDS: POLYETHYLENE GLYCOL 17 GM PKG PO SCH ×2 (08:00→21:00)
[2016-11-11] MEDS ORDERED: METHADONE 10 MG/ML VIAL IV PUSH ONE (08:00)
[2016-11-11] MEDS: BACITRACIN TOP OINT 15 GM TUBE TOPICAL SCH ×2 (08:00→21:00)
[2016-11-11] MEDS: KETAMINE INJ 500 MG in SODIUM CHLORID 0.9% 500 ML INJ 500 ML IV SCH ×2 (08:12→17:26)
[2016-11-11] MEDS: ENOXAPARIN SODIUM 30 MG/0.3 ML SYRINGE SQ SCH ×2 (10:00→22:25)
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
[2016-11-12] VITALS (17 sets, daily range): BP systolic 133–157; BP diastolic 63–81; PULSE 44–102; RESP 16–20; TEMP 99.6–101; O2SAT 94–99
[2016-11-12] MEDS: oxyCODONE HCL ORAL CONC 20 MG/ML SYRINGE PO SCH ×7 (00:58→23:08)
[2016-11-12] MEDS: PIPERACIL-TAZO 4.5 GM PREMIX 100 ML IV SCH (02:28)
[2016-11-12] MEDS: KETAMINE INJ 500 MG in SODIUM CHLORID 0.9% 500 ML INJ 500 ML IV SCH (04:25)
[2016-11-12] MEDS: ACETAMINOPHEN 1000 MG/100 ML VIAL IV PRN (04:33)
[2016-11-12 05:20] LABS: AUTOMATED NEUTROPHIL # 9.5 TH/MM3 (1.8-7.7); BASOPHIL % 0.2 % (0.0-2.0); EOSINOPHIL # 0.4 TH/MM3 (0-0.4); EOSINOPHIL % 3.2 % (0.0-4.0); HEMATOCRIT 26.3 % (39.0-51.0); LYMPH % 17.3 % (9.0-44.0); LYMPHOCYTE # 2.4 TH/MM3 (1.0-4.8); MEAN CELL VOLUME 90.3 FL (80.0-100.0); MEAN CORPUSCULAR HEMOGLOBIN 30.5 PG (27.0-34.0); MEAN CORPUSCULAR HGB CONC 33.8 % (32.0-36.0); MONO % 10.5 % (0.0-8.0); NEUT % 68.8 % (16.0-70.0); PLATELET COUNT 415 TH/MM3 (150-450); RED BLOOD COUNT 2.92 MIL/MM3 (4.50-5.90); RED CELL DISTRIBUTION WIDTH 13.4 % (11.6-17.2); WHITE BLOOD COUNT 13.8 TH/MM3 (4.0-11.0)
[2016-11-12 05:25] LABS: HEMO FLAGS AUTO DIFF
[2016-11-12 05:30] LABS: ANION GAP 8 MEQ/L (5-15); AST (GOT) 43 U/L (15-37); BICARBONATE 26.3 MEQ/L (21.0-32.0); BLOOD UREA NITROGEN 25 MG/DL (7-18); CHLORIDE 109 MEQ/L (98-107); MAGNESIUM 2.3 MG/DL (1.5-2.5); POTASSIUM 3.9 MEQ/L (3.5-5.1); SODIUM (NA) 143 MEQ/L (136-145)
[2016-11-12 05:41] LABS: ALKALINE PHOSPHATASE 255 U/L (45-117); GLOMERULAR FILTRATION RATE 57 ML/MIN (>89); TOTAL BILIRUBIN ADULT 0.9 MG/DL (0.2-1.0)
[2016-11-12 05:42] LABS: BLOOD GAS BASE EXCESS -0.4 mmol/L (-2-2); BLOOD GAS CARBOXYHEMOGLOBIN 1.3 % (0-4); BLOOD GAS HCO3 24 mmol/L (22-26); BLOOD GAS METHEMOGLOBIN 1.1 % (0-2); BLOOD GAS O2 HGB SATURATION 95 % (90-100); BLOOD GAS OXYGEN CONTENT 12.2 Vol % (12.0-20.0); BLOOD GAS PCO2 40 mmHg (38-42); BLOOD GAS PO2 95 mmHg (61-120); CRITICAL VALUE NO; TEMP CORR TO 98.6
[2016-11-12] MEDS: fentaNYL DRIP 250 ML IV SCH ×2 (05:42→16:48)
[2016-11-12] MEDS: QUEtiapine FUMARATE 100 MG TAB PO SCH ×3 (05:42→21:19)
[2016-11-12 05:43] LABS: FIO2 40 %; OXYGEN DEVICE VENTILATOR
[2016-11-12 05:44] LABS: DRAW SITE RT RADIAL; NUMBER OF ARTERIAL PUNCTURES 1; STAT NO; ULNAR PULSE PRESENT
[2016-11-12 05:54] LABS: ALT (GPT) 42 U/L (12-78)
--- NOTE | 2016-11-12 06:22 | RADRPT ---
EXAM DATE/TIME: 11/12/2016 04:06 [facility] COMPARISON: CHEST SINGLE AP, November 11, 2016, 2:39. INDICATIONS : Shortness of breath. MEDICAL HISTORY : None. SURGICAL HISTORY : None. ENCOUNTER: Subsequent ACUITY: 1 week PAIN SCORE: Non-responsive. LOCATION: chest FINDINGS: A single view of the chest demonstrates bibasilar densities slightly worse on current study. Endotrac heal tube, nasogastric tube and left subclavian central line are stable in position.. Osseous struct ures are intact. CONCLUSION: Worsening bibasilar densities. Joseph Boone MD on November 12, 2016 at 6:18 Board Certified Radiologist. This report was verified electronically.
[2016-11-12 06:50] LABS: BANDS 8 % (0-6); BASOPHILS 1 % (0-2); EOSINOPHILS 4 % (0-4); METAMYELOCYTES 1 % (0-1); NEUTROPHIL # MANUAL DIFF 8.6 TH/MM3 (1.8-7.7); PLATELET ESTIMATE SMEAR NORMAL (NORMAL); PLATELET MORPHOLOGY NORMAL (NORMAL); POLYS (SEG NEUTROPHILS) 53 % (16-70); SCAN/DIFF FINAL DIFF MANUAL; WBC DIFF SAMPLE 100
[2016-11-12] MEDS: SODIUM CHLORIDE 0.9% FLUSH 10 ML FLUSH IV FLUSH SCH ×2 (07:14→19:58)
[2016-11-12] MEDS ORDERED: KETAMINE INJ 500 MG in SODIUM CHLORID 0.9% 500 ML INJ 500 ML IV SCH (07:30)
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
[2016-11-12] MEDS: DOCUSATE SODIUM 50 MG/SENNA 8.6 MG TAB PO SCH ×2 (09:00→19:59)
[2016-11-12] MEDS: BACITRACIN TOP OINT 15 GM TUBE TOPICAL SCH ×2 (09:00→21:13)
[2016-11-12] MEDS: GABAPENTIN 250 MG/5 ML UDC NG SCH ×3 (09:11→17:02)
[2016-11-12] MEDS: CHLORHEXIDINE 0.12% (ORAL KIT) 15 ML CUP MT SCH ×2 (09:11→19:58)
[2016-11-12] MEDS: FAMOTIDINE 20 MG TAB PO SCH ×2 (09:13→19:59)
[2016-11-12] MEDS: cefTRIAXone INJ 2,000 MG in SODIUM CHLORIDE 0.9% INJ 100 ML IV SCH (09:13)
[2016-11-12] MEDS: cloNIDine HCL 0.3 MG TAB PO SCH ×3 (09:16→21:18)
[2016-11-12] MEDS: ACETAMINOPHEN 1000 MG/100 ML VIAL IV SCH ×3 (11:00→21:19)
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
--- NOTE | 2016-11-12 16:27 | RADRPT ---
EXAM DATE/TIME: 11/12/2016 15:15 [facility] COMPARISON: No previous studies available for comparison. INDICATIONS : Bilateral leg edema. MEDICAL HISTORY : Abdominal pain. Muscle and joint pain. Multiple left rib fractures. Sternal fracture. Right scapular fracture. Respiratory distress. Hemopneumothorax. SURGICAL HISTORY : Circumcision. ENCOUNTER: Initial ACUITY: 1 day PAIN SCORE: Non-responsive LOCATION: Bilateral leg. TECHNIQUE: Venous ultrasound of the left and right leg was performed from the inguinal ligament to the proximal calf. Real-time, color Doppler and spectral tracing, compression and augmentation techniques were us ed. FINDINGS: RIGHT LEG: There is normal compressibility of the deep venous system from the inguinal region to the proximal ca lf. No echogenic clot is seen in the lumen of the common femoral, femoral, popliteal, and posterior tibial veins. There is a normal response of the venous system to proximal and distal augmentation an d respiration. LEFT LEG: There is normal compressibility of the deep venous system from the inguinal region to the proximal ca lf. No echogenic clot is seen in the lumen of the common femoral, femoral, popliteal, and posterior tibial veins. There is a normal response of the venous system to proximal and distal augmentation an d respiration. CONCLUSION: Normal examination. Lavon Stark MD on November 12, 2016 at 16:24 Board Certified Radiologist. This report was verified electronically.
--- NOTE | 2016-11-12 16:38 | RADRPT ---
EXAM DATE/TIME: 11/12/2016 15:48 [facility] COMPARISON: No previous studies available for comparison. INDICATIONS : Bilateral arm edema. MEDICAL HISTORY : Abdominal pain. Muscle and joint pain. Multiple left rib fractures. Sternal fracture. Right scapular fracture. Respiratory distress. Hemopneumothorax. SURGICAL HISTORY : circumcision ENCOUNTER: Initial ACUITY: 1 day PAIN SCORE: Non-responsive LOCATION: Bilateral arms. FINDINGS: RIGHT UPPER EXTREMITY: There is spontaneous flow documented in the brachial, basilic, axillary, and subclavian veins. There is a small amount of superficial thrombus in the cephalic vein. The vessels are compressible and aug mentation response is documented. No filling defects are seen. The flow is phasic with respiration. Direction of flow in the jugular vein is caudal. LEFT UPPER EXTREMITY: There is spontaneous flow documented in the brachial, basilic, axillary, and subclavian veins. There is a small amount of superficial thrombus in the cephalic vein. The vessels are compressible and aug mentation response is documented. No filling defects are seen. The flow is phasic with respiration. Direction of flow in the jugular vein is caudal. CONCLUSION: 1. Small superficial thrombus in the cephalic vein bilaterally. No deep venous thrombosis identified. Lavon Stark MD on November 12, 2016 at 16:34 Board Certified Radiologist. This report was verified electronically.
--- NOTE | 2016-11-12 17:26 | RADRPT ---
EXAM DATE/TIME: 11/11/2016 22:25 [facility] COMPARISON: No previous studies available for comparison. INDICATIONS : Right upper quadrant pain. MEDICAL HISTORY : Abdominal pain. Muscle and joint pain. Multiple left rib fractures. Sternal fracture. Right scapular fracture. Respiratory distress. Hemopneumothorax. SURGICAL HISTORY : Circumcision. ENCOUNTER: Initial ACUITY: 1 day PAIN SCORE: 4/10 LOCATION: Right upper quadrant MEASUREMENTS: LIVER: 16.1 cm length COMMON DUCT: 4 mm RIGHT KIDNEY: 12.7 x 7.2 x 6.4 cm FINDINGS: LIVER: Normal echotexture without focal lesion or ductal dilatation. COMMON DUCT: No intraluminal mass or stone visualized. GALLBLADDER: There is sludge filling the gallbladder. No significant gallbladder wall thickening or pericholecysti c fluid is identified. PANCREAS: The visualized portions are within normal limits. RIGHT KIDNEY: No evidence of hydronephrosis, stone, or mass. CONCLUSION: 1. Sludge filled gallbladder. No significant gallbladder wall thickening or pericholecystic fluid mary ntified. Orlin Cabral MD on November 12, 2016 at 17:23 Board Certified Radiologist. This report was verified electronically.
[2016-11-12 21:30] LABS: C. DIFF EPI 027 PRESUMPTIVE NEGATIVE (NEGATIVE); C. DIFF TOXIN PCR NEGATIVE (NEGATIVE)
[2016-11-13] VITALS (18 sets, daily range): BP systolic 119–176; BP diastolic 57–86; PULSE 70–99; RESP 12–28; TEMP 99.3–99.8; O2SAT 92–98
[2016-11-13] MEDS: fentaNYL DRIP 250 ML IV SCH ×2 (01:39→13:09)
[2016-11-13] MEDS: ACETAMINOPHEN 1000 MG/100 ML VIAL IV SCH ×4 (04:01→22:13)
[2016-11-13] MEDS: oxyCODONE HCL ORAL CONC 20 MG/ML SYRINGE PO SCH ×4 (04:01→16:00)
[2016-11-13] MEDS: cloNIDine HCL 0.3 MG TAB PO SCH ×3 (05:17→22:12)
[2016-11-13] MEDS: QUEtiapine FUMARATE 100 MG TAB PO SCH ×2 (05:17→13:08)
[2016-11-13] MEDS: FAMOTIDINE 20 MG TAB PO SCH ×2 (08:48→20:03)
[2016-11-13] MEDS: DOCUSATE SODIUM 50 MG/SENNA 8.6 MG TAB PO SCH ×2 (08:48→20:02)
[2016-11-13] MEDS: cefTRIAXone INJ 2,000 MG in SODIUM CHLORIDE 0.9% INJ 100 ML IV SCH (08:49)
[2016-11-13] MEDS: CHLORHEXIDINE 0.12% (ORAL KIT) 15 ML CUP MT SCH ×2 (08:49→20:00)
[2016-11-13] MEDS: BACITRACIN TOP OINT 15 GM TUBE TOPICAL SCH ×2 (08:49→20:03)
[2016-11-13 08:50] LABS: HEMATOCRIT 24.8 % (39.0-51.0); MEAN CELL VOLUME 89.4 FL (80.0-100.0); MEAN CORPUSCULAR HEMOGLOBIN 30.3 PG (27.0-34.0); PLATELET COUNT 449 TH/MM3 (150-450); RED BLOOD COUNT 2.78 MIL/MM3 (4.50-5.90); REVIEW FLAG FINAL; WHITE BLOOD COUNT 11.3 TH/MM3 (4.0-11.0)
[2016-11-13] MEDS: SODIUM CHLORIDE 0.9% FLUSH 10 ML FLUSH IV FLUSH SCH ×2 (08:50→20:02)
[2016-11-13] MEDS: GABAPENTIN 250 MG/5 ML UDC NG SCH ×3 (08:52→17:35)
[2016-11-13 09:11] LABS: BICARBONATE 25.3 MEQ/L (21.0-32.0); POTASSIUM 3.9 MEQ/L (3.5-5.1)
[2016-11-13] MEDS ORDERED: DO NOT ADMINISTER ANTICOAGULANTS PRN (11:45)
[2016-11-13] MEDS ORDERED: NO SYSTEM NARCOTICS PRN (11:45)
[2016-11-13] MEDS ORDERED: ePHEDrine/NS 25 MG/5 ML SYR IV PRN (11:45)
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
[2016-11-13] MEDS ORDERED: LIDOCAINE HCL 1% 50 ML VIAL ONE (14:07)
[2016-11-13] MEDS: ONDANSETRON HCL 4 MG/2 ML VIAL IV PRN (15:17)
[2016-11-13] MEDS: fentaNYL 2MCG-BUPIV 0.125% 100 ML EPIDURAL SCH (15:18)
[2016-11-13] MEDS ORDERED: RESP: RACEPINEPHRINE 2.25% 0.5 ML NEB ONE (15:30)
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
[2016-11-13] MEDS ORDERED: RESP: RACEPINEPHRINE 2.25% 0.5 ML NEB NEB ONE (18:30)
[2016-11-13] MEDS: HYDROmorphone HCL PF 1 MG/ML VIAL IV PUSH PRN (18:51)
[2016-11-13] MEDS: HEPARIN SODIUM - SQ 10,000 UNITS/ML VIAL SQ SCH (20:02)
[2016-11-14] VITALS (14 sets, daily range): BP systolic 121–149; BP diastolic 61–84; PULSE 63–88; RESP 15–26; TEMP 98.2–98.8; O2SAT 92–99
[2016-11-14] MEDS: fentaNYL 2MCG-BUPIV 0.125% 100 ML EPIDURAL SCH ×4 (00:25→21:52)
[2016-11-14 04:10] LABS: AUTOMATED NEUTROPHIL # 7.6 TH/MM3 (1.8-7.7); BASOPHIL % 0.3 % (0.0-2.0); EOSINOPHIL # 0.1 TH/MM3 (0-0.4); EOSINOPHIL % 1.4 % (0.0-4.0); HEMATOCRIT 24.2 % (39.0-51.0); HEMO FLAGS DIFF FINAL; LYMPH % 15.5 % (9.0-44.0); LYMPHOCYTE # 1.7 TH/MM3 (1.0-4.8); MEAN CELL VOLUME 89.6 FL (80.0-100.0); MEAN CORPUSCULAR HGB CONC 34.5 % (32.0-36.0); MONO % 11.8 % (0.0-8.0); PLATELET COUNT 506 TH/MM3 (150-450); RED BLOOD COUNT 2.69 MIL/MM3 (4.50-5.90); RED CELL DISTRIBUTION WIDTH 12.9 % (11.6-17.2); WHITE BLOOD COUNT 10.8 TH/MM3 (4.0-11.0)
[2016-11-14 04:34] LABS: ANION GAP 9 MEQ/L (5-15); AST (GOT) 39 U/L (15-37); BICARBONATE 26.3 MEQ/L (21.0-32.0); BLOOD UREA NITROGEN 27 MG/DL (7-18); CHLORIDE 110 MEQ/L (98-107); GLOMERULAR FILTRATION RATE 95 ML/MIN (>89); MAGNESIUM 2.2 MG/DL (1.5-2.5); POTASSIUM 3.4 MEQ/L (3.5-5.1); SODIUM (NA) 145 MEQ/L (136-145)
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
[2016-11-14 04:37] LABS: ALKALINE PHOSPHATASE 285 U/L (45-117); ALT (GPT) 43 U/L (12-78); TOTAL BILIRUBIN ADULT 0.6 MG/DL (0.2-1.0)
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
[2016-11-14 05:02] LABS: BLOOD GAS BASE EXCESS 0.8 mmol/L (-2-2); BLOOD GAS CARBOXYHEMOGLOBIN 1.2 % (0-4); BLOOD GAS HCO3 24 mmol/L (22-26); BLOOD GAS METHEMOGLOBIN 0.7 % (0-2); BLOOD GAS O2 HGB SATURATION 92 % (90-100); BLOOD GAS OXYGEN CONTENT 14.8 Vol % (12.0-20.0); BLOOD GAS PCO2 36 mmHg (38-42); BLOOD GAS PO2 71 mmHg (61-120); BLOOD GAS TOTAL HGB 11.4 G/DL (12.0-16.0); TEMP CORR TO 98.6
[2016-11-14 05:03] LABS: CRITICAL VALUE NO; DRAW SITE LT RADIAL; LITER FLOW 6 L/M; NUMBER OF ARTERIAL PUNCTURES 1; OXYGEN DEVICE NASAL CANNULA; STAT NO; ULNAR PULSE PRESENT
[2016-11-14] MEDS: POTASSIUM CHLOR 20 MEQ PREMIX 100 ML IV PRN ×3 (05:54→19:22)
[2016-11-14] MEDS: cloNIDine HCL 0.3 MG TAB PO SCH ×3 (05:55→21:37)
[2016-11-14] MEDS: ACETAMINOPHEN 1000 MG/100 ML VIAL IV SCH ×4 (05:55→23:47)
[2016-11-14] MEDS: HYDROmorphone HCL PF 1 MG/ML VIAL IV PUSH PRN (06:05)
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
[2016-11-14] MEDS: CHLORHEXIDINE 0.12% (ORAL KIT) 15 ML CUP MT SCH (08:00)
[2016-11-14] MEDS: DOCUSATE SODIUM 50 MG/SENNA 8.6 MG TAB PO SCH ×2 (08:07→20:28)
[2016-11-14] MEDS: HEPARIN SODIUM - SQ 10,000 UNITS/ML VIAL SQ SCH ×2 (09:00→20:28)
[2016-11-14] MEDS: FAMOTIDINE 20 MG TAB PO SCH ×2 (09:24→20:28)
[2016-11-14] MEDS: SODIUM CHLORIDE 0.9% FLUSH 10 ML FLUSH IV FLUSH SCH ×2 (09:25→19:22)
[2016-11-14] MEDS: cefTRIAXone INJ 2,000 MG in SODIUM CHLORIDE 0.9% INJ 100 ML IV SCH (09:25)
[2016-11-14] MEDS: BACITRACIN TOP OINT 15 GM TUBE TOPICAL SCH ×2 (09:28→20:29)
[2016-11-14] MEDS: GABAPENTIN 250 MG/5 ML UDC NG SCH (10:20)
[2016-11-14] MEDS: GABAPENTIN 300 MG CAP PO SCH ×2 (14:27→17:31)
[2016-11-15] VITALS (14 sets, daily range): BP systolic 132–161; BP diastolic 73–99; PULSE 59–75; RESP 14–23; TEMP 97.7–98.2; O2SAT 94–99
[2016-11-15] MEDS: fentaNYL 2MCG-BUPIV 0.125% 100 ML EPIDURAL SCH ×2 (03:45→12:21)
[2016-11-15 04:43] LABS: AUTOMATED NEUTROPHIL # 8.7 TH/MM3 (1.8-7.7); BASOPHIL % 0.3 % (0.0-2.0); EOSINOPHIL # 0.2 TH/MM3 (0-0.4); EOSINOPHIL % 1.3 % (0.0-4.0); HEMATOCRIT 25.6 % (39.0-51.0); HEMO FLAGS DIFF FINAL; LYMPH % 15.3 % (9.0-44.0); LYMPHOCYTE # 1.8 TH/MM3 (1.0-4.8); MEAN CELL VOLUME 90.1 FL (80.0-100.0); MEAN CORPUSCULAR HEMOGLOBIN 29.9 PG (27.0-34.0); MEAN CORPUSCULAR HGB CONC 33.2 % (32.0-36.0); MONO % 9.2 % (0.0-8.0); NEUT % 73.9 % (16.0-70.0); PLATELET COUNT 524 TH/MM3 (150-450); RED BLOOD COUNT 2.84 MIL/MM3 (4.50-5.90); RED CELL DISTRIBUTION WIDTH 12.5 % (11.6-17.2); WHITE BLOOD COUNT 11.8 TH/MM3 (4.0-11.0)
--- NOTE | 2016-11-15 05:04 | RADRPT ---
EXAM DATE/TIME: 11/15/2016 03:51 [facility] COMPARISON: CHEST SINGLE AP, November 11, 2016, 2:39. CHEST SINGLE AP, November 12, 2016, 4:06. CHEST SINGLE AP, October 222016, 3:50. INDICATIONS : Short of breath. MEDICAL HISTORY : None. SURGICAL HISTORY : None. ENCOUNTER: Subsequent ACUITY: 4 - 6 days PAIN SCORE: 0/10 LOCATION: Bilateral chest FINDINGS: There is a changed configurations of the left chest with absence of lung markings at the left apex an d lucency both at the apex and tracking along the mediastinal and superior left heart border suggesti ng a left sided pneumothorax. At the apex, the lucent area measures 1.8 cm. There is persisting con solidation in the left lower lobe with loss of delineation of the left hemidiaphragm. Patchy infiltr ates in the right lung and elevation right hemidiaphragm stable from prior. CONCLUSION: Findings suggest interval development of a left pneumothorax measuring up to 1.8 cm. Sathish Flores MD on November 15, 2016 at 5:00 Board Certified Radiologist. This report was verified electronically.
[2016-11-15] MEDS: ACETAMINOPHEN 1000 MG/100 ML VIAL IV SCH ×2 (05:10→10:11)
[2016-11-15] MEDS: cloNIDine HCL 0.3 MG TAB PO SCH ×3 (05:10→22:54)
[2016-11-15 05:20] LABS: ALT (GPT) 44 U/L (12-78); ANION GAP 9 MEQ/L (5-15); AST (GOT) 34 U/L (15-37); BICARBONATE 26.1 MEQ/L (21.0-32.0); BLOOD UREA NITROGEN 24 MG/DL (7-18); CHLORIDE 109 MEQ/L (98-107); GLOMERULAR FILTRATION RATE 94 ML/MIN (>89); POTASSIUM 3.4 MEQ/L (3.5-5.1); SODIUM (NA) 144 MEQ/L (136-145)
[2016-11-15 05:22] LABS: ALKALINE PHOSPHATASE 270 U/L (45-117); TOTAL BILIRUBIN ADULT 0.6 MG/DL (0.2-1.0)
[2016-11-15] MEDS: POTASSIUM CHLOR 20 MEQ PREMIX 100 ML IV PRN ×2 (05:47→05:48)
[2016-11-15] MEDS: BACITRACIN TOP OINT 15 GM TUBE TOPICAL SCH ×2 (09:00→19:42)
[2016-11-15] MEDS: SODIUM CHLORIDE 0.9% FLUSH 10 ML FLUSH IV FLUSH SCH ×2 (09:00→19:42)
[2016-11-15] MEDS: DOCUSATE SODIUM 50 MG/SENNA 8.6 MG TAB PO SCH ×2 (09:00→19:42)
[2016-11-15] MEDS: cefTRIAXone INJ 2,000 MG in SODIUM CHLORIDE 0.9% INJ 100 ML IV SCH (10:09)
[2016-11-15] MEDS: HEPARIN SODIUM - SQ 10,000 UNITS/ML VIAL SQ SCH ×2 (10:10→19:41)
[2016-11-15] MEDS: GABAPENTIN 300 MG CAP PO SCH ×3 (10:10→17:35)
[2016-11-15] MEDS: FAMOTIDINE 20 MG TAB PO SCH ×2 (10:10→19:41)
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
[2016-11-15] MEDS: KETOROLAC TROMETHAMINE 30 MG/ML (IVP) VIAL IV PUSH SCH ×2 (13:02→17:34)
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
[2016-11-15] MEDS: ACETAMINOPHEN 325 MG TAB PO SCH ×2 (14:46→19:41)
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
--- NOTE | 2016-11-15 18:50 | HHI.PR ---
Subjective Remarks Epidural Management Note Epidural Day: 3 Epidural Level: T7/8 Epidural Current settings: 12 mL/hr with 3mL q15min demand, 0.125% bupiv, 2mcg/ mL fentanyl. Pain level: 2 / 10 Subjective: The patient subjectively states that he has much better pain control. He is on only oral oxycodone. No IV Dilaudid use in the last 24 hours. No complaints. Adjuvant Pain medications: tylenol 650mg po q6h scheduled oxycodone 10mg po q4h prn dilaudid 0.5mg iv q4h prn gabapentin 300mg TID clonidine 0.3mg po TID Changes made to current regimen: We will attempt to clamp epidural and see how he does over the coming 3-4 hours. If he does well with this with only oral meds we will consider DC his epidural today, as I think he can progress to the floor with oral opiates. If he does not tolerate this, we will plan to continue his epidural an additional day. Increase gabapentin to 600 mg 3 times a day Now that his renal function is improved we will start Toradol 50 mg IV every 6 hours for 3 days. Medical Necessity: This patient has ongoing and active pain needs that are being met by neuraxial analgesia. Specifically, pain associated with multiple bilateral rib fractures. The neuraxial analgesia continues to be required today on my assessment. Ni catheter: A ni catheter IS NOT required for this patient. This patient may ambulate with assitance. Objective Vital Signs Date Time Temp Pulse Resp B/P Pulse Ox O2 Delivery O2 Flow Rate FiO2 11/15/16 18:00 63 11/15/16 16:00 98.2 75 16 132/73 99 11/15/16 16:00 75 11/15/16 15:46 16 11/15/16 15:46 16 11/15/16 14:02 16 11/15/16 14:00 72 11/15/16 12:51 20 11/15/16 12:21 16 11/15/16 12:00 72 11/15/16 12:00 97.7 72 20 161/83 98 11/15/16 10:41 16 11/15/16 10:00 59 11/15/16 08:00 74 11/15/16 08:00 98.0 74 16 138/99 95 11/15/16 07:47 94 Nasal Cannula 3.00 11/15/16 07:00 94 Nasal Cannula 5.00 11/15/16 06:00 64 11/15/16 04:00 67 11/15/16 04:00 98.0 62 14 138/75 98 11/15/16 03:45 19 11/15/16 02:00 70 11/15/16 00:00 98.0 62 14 138/75 98 11/15/16 00:00 62 11/14/16 22:00 68 11/14/16 21:52 19 11/14/16 20:30 98 Nasal Cannula 5.00 11/14/16 20:00 64 11/14/16 20:00 98.2 64 15 125/65 99 11/14/16 19:00 99 Nasal Cannula 6.00 I/O 11/14/16 11/14/16 11/14/16 11/15/16 11/15/16 11/15/16 07:00 15:00 23:00 07:00 15:00 23:00 Intake Total 665 ml 1200 ml 951 ml 697 ml 989 ml Output Total 1 ml 500 ml 400 ml 450 ml 450 ml Balance 664 ml 700 ml 551 ml 247 ml 539 ml Intake Oral 240 ml 720 ml 480 ml 240 ml 300 ml IV Total 425 ml 480 ml 471 ml 457 ml 689 ml Tube Feeding 0 ml Tube Irrigant 0 ml Output Urine Total 500 ml 400 ml 450 ml 450 ml Stool Total 1 ml # Voids 0 # Bowel Movements 2 1 0 1 Result Diagram: 11/15/16 0355 11/15/16 0355 Tony Augustine MD Nov 15, 2016 18:50
--- NOTE | 2016-11-15 18:53 | HHI.PR ---
Subjective Remarks Date of service: 11/14. Seen and evaluated around approximately 9 AM Epidural Management Note Epidural Day: 2 Epidural Level: T7/8 Epidural Current settings: 8 mL/hr with 3mL q15min demand, 0.125% bupiv, 2mcg/ mL fentanyl. Pain level: 4 / 10 Subjective: Successfully extubated yesterday after epidural placement. More significant pain overnight. Patient's pain is mostly with deep inspiration. Initially overnight can only pull 250 cc on incentive spirometer. Now pulling 1 L. Adjuvant Pain medications: tylenol 1000mg iv q6h scheduled oxycodone 10mg po q4h prn dilaudid 0.5mg iv q4h prn gabapentin 300mg TID clonidine 0.3mg po TID Changes made to current regimen: Increase epidural rate to 12 mL/hr. Keep demand the same. Medical Necessity: This patient has ongoing and active pain needs that are being met by neuraxial analgesia. Specifically, pain associated with multiple bilateral rib fractures. The neuraxial analgesia continues to be required today on my assessment. Ni catheter: A ni catheter IS NOT required for this patient. This patient may ambulate with assistance. Objective Vital Signs Date Time Temp Pulse Resp B/P Pulse Ox O2 Delivery O2 Flow Rate FiO2 11/15/16 18:00 63 11/15/16 16:00 98.2 75 16 132/73 99 11/15/16 16:00 75 11/15/16 15:46 16 11/15/16 15:46 16 11/15/16 14:02 16 11/15/16 14:00 72 11/15/16 12:51 20 11/15/16 12:21 16 11/15/16 12:00 72 11/15/16 12:00 97.7 72 20 161/83 98 11/15/16 10:41 16 11/15/16 10:00 59 11/15/16 08:00 74 11/15/16 08:00 98.0 74 16 138/99 95 11/15/16 07:47 94 Nasal Cannula 3.00 11/15/16 07:00 94 Nasal Cannula 5.00 11/15/16 06:00 64 11/15/16 04:00 67 11/15/16 04:00 98.0 62 14 138/75 98 11/15/16 03:45 19 11/15/16 02:00 70 11/15/16 00:00 98.0 62 14 138/75 98 11/15/16 00:00 62 11/14/16 22:00 68 11/14/16 21:52 19 11/14/16 20:30 98 Nasal Cannula 5.00 11/14/16 20:00 64 11/14/16 20:00 98.2 64 15 125/65 99 11/14/16 19:00 99 Nasal Cannula 6.00 I/O 11/14/16 11/14/16 11/14/16 11/15/16 11/15/16 11/15/16 07:00 15:00 23:00 07:00 15:00 23:00 Intake Total 665 ml 1200 ml 951 ml 697 ml 989 ml Output Total 1 ml 500 ml 400 ml 450 ml 450 ml Balance 664 ml 700 ml 551 ml 247 ml 539 ml Intake Oral 240 ml 720 ml 480 ml 240 ml 300 ml IV Total 425 ml 480 ml 471 ml 457 ml 689 ml Tube Feeding 0 ml Tube Irrigant 0 ml Output Urine Total 500 ml 400 ml 450 ml 450 ml Stool Total 1 ml # Voids 0 # Bowel Movements 2 1 0 1 Result Diagram: 11/15/16 0355 11/15/16 0355 Tony Augustine MD Nov 15, 2016 18:53
[2016-11-15] MEDS ORDERED: SENN1TAB PO (20:11)
[2016-11-16] VITALS (10 sets, daily range): BP systolic 136–148; BP diastolic 74–79; PULSE 52–80; RESP 18–23; TEMP 98.1–98.5; O2SAT 95–97
[2016-11-16] MEDS: KETOROLAC TROMETHAMINE 30 MG/ML (IVP) VIAL IV PUSH SCH ×3 (00:24→12:33)
[2016-11-16] MEDS: ACETAMINOPHEN 325 MG TAB PO SCH ×3 (03:00→14:59)
--- NOTE | 2016-11-16 03:32 | RADRPT ---
EXAM DATE/TIME: 11/16/2016 02:55 [facility] COMPARISON: CT THORAX W/O CONTRAST, November 15, 2016, 11:41. CHEST SINGLE AP, November 15, 2016, 3:51. INDICATIONS : Short of breath. MEDICAL HISTORY : None. SURGICAL HISTORY : None. ENCOUNTER: Initial ACUITY: 1 week PAIN SCORE: Non-responsive. LOCATION: Bilateral chest FINDINGS: Left-sided pneumothorax measuring 11 mm at the apex and appearing as a lucent band along the left hea rt border. Patchy areas of consolidation left midlung and lobar consolidation in the left lower lobe with loss of delineation of the entire left hemidiaphragm. No consolidative infiltrate seen in the right lung. The heart is normal in size. CONCLUSION: 1. Left lower lobe consolidation. 2. Upper and anterior left pneumothorax, similar to prior without evidence of mediastinal shift. Sathish Flores MD on November 16, 2016 at 3:28 Board Certified Radiologist. This report was verified electronically.
[2016-11-16 05:12] LABS: AUTOMATED NEUTROPHIL # 9.1 TH/MM3 (1.8-7.7); BASOPHIL % 0.4 % (0.0-2.0); EOSINOPHIL # 0.3 TH/MM3 (0-0.4); EOSINOPHIL % 2.4 % (0.0-4.0); HEMO FLAGS DIFF FINAL; LYMPH % 16.3 % (9.0-44.0); MEAN CELL VOLUME 89.6 FL (80.0-100.0); MEAN CORPUSCULAR HEMOGLOBIN 30.4 PG (27.0-34.0); MEAN CORPUSCULAR HGB CONC 33.9 % (32.0-36.0); MONO % 7.5 % (0.0-8.0); NEUT % 73.4 % (16.0-70.0); PLATELET COUNT 658 TH/MM3 (150-450); RED BLOOD COUNT 3.02 MIL/MM3 (4.50-5.90); RED CELL DISTRIBUTION WIDTH 12.8 % (11.6-17.2); WHITE BLOOD COUNT 12.4 TH/MM3 (4.0-11.0)
[2016-11-16 05:40] LABS: ANION GAP 10 MEQ/L (5-15); AST (GOT) 25 U/L (15-37); BICARBONATE 23.9 MEQ/L (21.0-32.0); BLOOD UREA NITROGEN 25 MG/DL (7-18); CHLORIDE 107 MEQ/L (98-107); GLOMERULAR FILTRATION RATE 90 ML/MIN (>89); MAGNESIUM 2.1 MG/DL (1.5-2.5); POTASSIUM 3.6 MEQ/L (3.5-5.1); SODIUM (NA) 141 MEQ/L (136-145)
[2016-11-16 05:41] LABS: ALT (GPT) 36 U/L (12-78)
[2016-11-16 05:43] LABS: ALKALINE PHOSPHATASE 291 U/L (45-117); TOTAL BILIRUBIN ADULT 0.7 MG/DL (0.2-1.0)
[2016-11-16] MEDS: cloNIDine HCL 0.3 MG TAB PO SCH ×2 (05:53→14:58)
[2016-11-16] MEDS ORDERED: ENOXAPARIN SODIUM 40 MG/0.4 ML SYRINGE SQ SCH (09:00)
[2016-11-16] MEDS: BACITRACIN TOP OINT 15 GM TUBE TOPICAL SCH (09:00)
[2016-11-16] MEDS: GABAPENTIN 300 MG CAP PO SCH ×2 (09:00→12:33)
[2016-11-16] MEDS: SODIUM CHLORIDE 0.9% FLUSH 10 ML FLUSH IV FLUSH SCH (09:00)
[2016-11-16] MEDS: FAMOTIDINE 20 MG TAB PO SCH (09:00)
[2016-11-16] MEDS: cefTRIAXone INJ 2,000 MG in SODIUM CHLORIDE 0.9% INJ 100 ML IV SCH (09:00)
[2016-11-16] MEDS: DOCUSATE SODIUM 50 MG/SENNA 8.6 MG TAB PO SCH (09:00)
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
[2016-11-16] MEDS ORDERED: FAMO20TA2 PO (13:26)
[2016-11-16] MEDS ORDERED: ENOX40P SQ (13:26)
[2016-11-16] MEDS ORDERED: NEUR300C PO (13:26)
[2016-11-16] MEDS ORDERED: ACET1TAB86 PO (13:26)
[2016-11-16] MEDS ORDERED: KETO30IN3 IM (13:26)
[2016-11-16] MEDS ORDERED: CLON-481 PO (13:26)
[2016-11-16] MEDS ORDERED: OXYC-392 PO (13:26)
--- NOTE | 2016-11-16 15:46 | HHI.PR ---
Addendum to Inpatient Note Additional Information OK to switch to po levaquone to complete the recommended course dw Cecilia Anderson MD Nov 16, 2016 15:46
[2016-11-16] MEDS ORDERED: LEVO750T3 PO (15:47)
[2016-11-17] MEDS ORDERED: MIDAZOLAM HCL 5 MG/ML VIAL (1 ML) ONE (06:26)
[2016-11-17] MEDS ORDERED: ROCURONIUM INJ 50 MG/5 ML VIAL ONE (06:27)
[2016-11-17] MEDS ORDERED: LEVOFLOXACIN 750 MG TAB PO SCH (09:00)
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
== END 2016-11-16 16:08 | DRG 166 ==
LOC: NEPE 11:39 → NEDA 14:07 → N03B 17:40 → N03A 11-05 07:57
PROVIDERS: ADMIT Surgery; ATTEND Surgery
PROC: 5A09457 Assistance with Respiratory Ventilation, 24-96 Consecutive Hours, Continuous Positive Airway Pressure (ICD-10-PCS; 2016-11-04)
PROC: 5A1955Z Respiratory Ventilation, Greater than 96 Consecutive Hours (ICD-10-PCS; 2016-11-06)
PROC: 0BH17EZ Insertion of Endotracheal Airway into Trachea, Via Natural or Artificial Opening (ICD-10-PCS; 2016-11-06)
PROC: 0B9F8ZX Drainage of Right Lower Lung Lobe, Via Natural or Artificial Opening Endoscopic, Diagnostic (ICD-10-PCS; principal; 2016-11-08)
PROC: 0B9J8ZX Drainage of Left Lower Lung Lobe, Via Natural or Artificial Opening Endoscopic, Diagnostic (ICD-10-PCS; 2016-11-08)
DX: S22.5XXA Flail chest, initial encounter for closed fracture (principal); S27.2XXA Traumatic hemopneumothorax, initial encounter; A41.59 Other Gram-negative sepsis; R65.21 Severe sepsis with septic shock; J69.0 Pneumonitis due to inhalation of food and vomit; S22.069A Unspecified fracture of T7-T8 vertebra, initial encounter for closed fracture; G93.40 Encephalopathy, unspecified; E87.3 Alkalosis; S22.079A Unspecified fracture of T9-T10 vertebra, initial encounter for closed fracture; J96.02 Acute respiratory failure with hypercapnia; J96.01 Acute respiratory failure with hypoxia; J15.0 Pneumonia due to Klebsiella pneumoniae; J81.1 Chronic pulmonary edema; E44.1 Mild protein-calorie malnutrition; D62 Acute posthemorrhagic anemia; N17.9 Acute kidney failure, unspecified; S27.322A Contusion of lung, bilateral, initial encounter; I82.613 Acute embolism and thrombosis of superficial veins of upper extremity, bilateral; J98.11 Atelectasis; S22.20XA Unspecified fracture of sternum, initial encounter for closed fracture; S22.21XA Fracture of manubrium, initial encounter for closed fracture; S42.101A Fracture of unspecified part of scapula, right shoulder, initial encounter for closed fracture; I10 Essential (primary) hypertension; E87.6 Hypokalemia; E87.70 Fluid overload, unspecified; R73.9 Hyperglycemia, unspecified; R19.7 Diarrhea, unspecified; V68.5XXA Driver of heavy transport vehicle injured in noncollision transport accident in traffic accident, initial encounter; Y92.410 Unspecified street and highway as the place of occurrence of the external cause; Z68.32 Body mass index [BMI] 32.0-32.9, adult
CPT/HCPCS: 31500; 36556; 36600; 70450; 71010; 71250; 71260; 72125; 72128; 72131; 72170; 74177; 76705; 80048; 80053; 80202; 80307; 81001; 82805; 83735; 84100; 84132; 84145; 84155; 85007; 85025; 85027; 85610; 85730; 86022; 86850; 86900; 86901; 87040; 87070; 87077; 87086; 87149; 87186; 87205; 87493; 87641; 90471; 90714; 93306; 93970; 94002; 94003; 94150; 94640; 94664; 94667; 94668; 96374; 96375; 96376; J0131; J0330; J0696; J1120; J1170; J1230; J1644; J1650; J1885; J1940; J2001; J2250; J2270; J2405; J2543; J3010; J3370; J3480; J7030; J7040; J7050; P9047; Q9967